=== PATIENT | female | born 1995 | race American Indian/Alaskan Native ===

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

== ENCOUNTER 2017-01-05 19:28 | Emergency (ER) | payer MEDICAID ==
[2017-01-05 19:37] VITALS: BP 136/70
--- NOTE | 2017-01-05 20:22 | EDM.PDOC ---
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 She saw her doctor about this and is scheduled for an OB visit fairly soon. She's had some uterine cramping for a couple of days. There has not been any bleeding. She has a little bit of a clear discharge and says there is a little bit of odor to it. She denies any burning or itching. Somebody told her that there might be a problem and maybe she should get checked out in the ER. 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 hymenectomy. LMP 10/30/16 Musculoskeletal History: Reports: Fracture Other Musculoskeletal History: left arm. fx R ankle Psychiatric History: Reports: ADD, Anxiety, Depression, Suicide Attempt, Suicidal Ideation Other Psychiatric History: had a suicidal attempt with pills 3 yrs ago - Past Surgical History GI Surgical History: Reports: Appendectomy Social & Family History - Tobacco Use Smoking Status *Q: Current Every Day Smoker Years of Tobacco use: 4 Packs/Tins Daily: 0.2 Used Tobacco, but Quit: No Month Tobacco Last Used: october Second Hand Smoke Exposure: No - Caffeine Use Caffeine Use: Reports: Coffee - Alcohol Use Days Per Week of Alcohol Use: 0 - Recreational Drug Use Recreational Drug Use: No Drug Use in Last 12 Months: Yes Recreational Drug Type: Reports: Marijuana/Hashish Recreational Drug Use Frequency: Not Used In Over 2 Months Recreational Drug Last Use: last month ED ROS GENERAL - Review of Systems Review Of Systems: ROS reveals no pertinent complaints other than HPI. ED EXAM, GI/ABD - Physical Exam Exam: See Below Exam Limited By: No Limitations General Appearance: Alert, WD/WN, No Apparent Distress Eyes: Bilateral: Normal Appearance Respiratory/Chest: No Respiratory Distress GI/Abdominal Exam: Other (Abdomen and exam not done) Course - Vital Signs Last Recorded V/S: Last Vital Signs Temp 36.8 C 01/05/17 19:35 Pulse 80 01/05/17 19:35 Resp 16 01/05/17 19:35 BP 136/70 01/05/17 19:35 Pulse Ox 99 01/05/17 19:35 Departure - Departure Time of Disposition: 20:20 Disposition: Home, Self-Care 01 Condition: Fair Clinical Impression: Pelvic pain affecting in first trimester, antepartum - Discharge Information Referrals: Dolores Bergman CNM [Primary Care Provider] - Additional Instructions: The kind of symptoms you are experiencing are very common in early . You should not be alarmed. If you feel like you're getting worse and you're starting to have bleeding then you should be reevaluated either in the ER or by your
== END 2017-01-05 20:15 | disposition home or self-care (01) ==
LOC: JP.ED 19:28
DX: O26.891 Other specified pregnancy related conditions, first trimester (principal); R10.2 Pelvic and perineal pain; O99.331 Smoking (tobacco) complicating pregnancy, first trimester; Z79.899 Other long term (current) drug therapy; Z3A.08 8 weeks gestation of pregnancy
CPT/HCPCS: 99284

== ENCOUNTER 2017-01-08 11:35 | Emergency (ER) | payer MEDICAID ==
[2017-01-08] MEDS ORDERED: Sodium Chloride 0.9% 10 ML Syringe FLUSH PRN (12:17)
[2017-01-08] MEDS ORDERED: Ondansetron 4 MG/2 ML SDV IVPUSH ONE (12:19)
[2017-01-08 12:25] VITALS: BP 128/68
[2017-01-08] MEDS: Lactated Ringers 1,000 ML IV SCH ×2 (12:51→13:50)
--- NOTE | 2017-01-08 12:51 | EDM.PDOC ---
ED HPI GENERAL MEDICAL PROBLEM - General Chief Complaint: Gastrointestinal Problem Stated Complaint: 9WK /VOMITING BLOOD Time Seen by Provider: 01/08/17 12:25 Source of Information: Reports: Patient, Family History Limitations: Reports: No Limitations - History of Present Illness INITIAL COMMENTS - FREE TEXT/NARRATIVE: Kourtney presents today with complaints of nausea and vomiting since 0630 today. She reports she has not been able to keep liquids or food down today and have been vomiting non-stop while at work. 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 Kourtney also reports the last several emesis have had bright blood in them. She is 9 weeks with estimated due date of July,. - Related Data Allergies Allergy/AdvReac Type Severity Reaction Status Date / Time No Known Allergies Allergy Verified 12/27/14 01:18 Home Meds: Home Meds Escitalopram [Lexapro] 20 mg PO DAILY 08/06/14 [History] Multivitamin [Multi-Day Vitamins] 1 tab PO DAILY 01/05/17 [History] Past Medical History Gastrointestinal History: Reports: GERD Other Gastrointestinal History: reflux Genitourinary History: Reports: UTI, Recurrent [employer] History: Reports: : 1 Para: 0 Other OB/BYN History: ovarian cyst. hymenectomy. LMP 10/30/16 Musculoskeletal History: Reports: Fracture Other Musculoskeletal History: left arm. fx R ankle Psychiatric History: Reports: ADD, Anxiety, Depression, Suicide Attempt, Suicidal Ideation Other Psychiatric History: had a suicidal attempt with pills 3 yrs ago - Past Surgical History GI Surgical History: Reports: Appendectomy Social & Family History - Tobacco Use Smoking Status *Q: Never Smoker Years of Tobacco use: 4 Packs/Tins Daily: 0.2 Used Tobacco, but Quit: No Month Tobacco Last Used: october Second Hand Smoke Exposure: No - Caffeine Use Caffeine Use: Reports: Coffee - Alcohol Use Days Per Week of Alcohol Use: 0 - Recreational Drug Use Recreational Drug Use: No Drug Use in Last 12 Months: Yes Recreational Drug Type: Reports: Marijuana/Hashish Recreational Drug Use Frequency: Not Used In Over 2 Months Recreational Drug Last Use: last month ED ROS GENERAL - Review of Systems Review Of Systems: See Below Constitutional: Denies: Fever, Chills, Malaise, Weakness HEENT: Reports: No Symptoms Respiratory: Denies: Shortness of Breath, Wheezing, Cough, Sputum Cardiovascular: Denies: Chest Pain, Dyspnea on Exertion, Edema, Lightheadedness , Palpitations, PND, Syncope Endocrine: Reports: No Symptoms GI/Abdominal: Reports: Nausea, Vomiting, Other (blood tinged vomit). Denies: Constipation, Diarrhea : Denies: Discharge, Dysuria, Flank Pain, Frequency, Hematuria, Pain, Urgency Musculoskeletal: Reports: No Symptoms Skin: Reports: No Symptoms Neurological: Reports: No Symptoms Psychiatric: Reports: No Symptoms Hematologic/Lymphatic: Reports: No Symptoms Immunologic: Reports: No Symptoms ED EXAM, GI/ABD - Physical Exam Exam: See Below Text/Narrative:: Kourtney is an alert, oriented and pleasant 21 year old female presenting to the clinic with nausea and vomiting during the first trimester of her . She reports she has been vomiting most days, today she has not been able to keep any foods or fluid down. She also states the last few emesis have had bright blood in them. She also complains of pelvic cramping at times. She denies vaginal bleeding or change in vaginal discharge. He care provider is Dolores at . She denies fever, chills, change in bowel and bladder function. General Appearance: Alert, WD/WN, Mild Distress Eyes: Bilateral: Normal Appearance, EOMI Ears: Normal External Exam, Normal Canal, Hearing Grossly Normal, Normal TMs Nose: Normal Inspection, Normal Mucosa, No Blood Throat/Mouth: Normal Inspection, Normal Lips, Normal Teeth, Normal Gums, Normal Oropharynx, Normal Voice, No Airway Compromise Head: Atraumatic, Normocephalic Neck: Normal Inspection, Supple, Non-Tender, Full Range of Motion. No: Lymphadenopathy (R), Lymphadenopathy (L) Respiratory/Chest: No Respiratory Distress, Lungs Clear, Normal Breath Sounds, No Accessory Muscle Use, Chest Non-Tender Cardiovascular: Normal Peripheral Pulses, Regular Rate, Rhythm, No Edema, No Murmur GI/Abdominal Exam: Normal Bowel Sounds, Soft, Non-Tender, No Mass Back Exam: Normal Inspection, Full Range of Motion. No: CVA Tenderness (R), CVA Tenderness (L) Extremities: Normal Inspection, Normal Range of Motion, Non-Tender, No Pedal Edema, Normal Capillary Refill Neurological: Alert, Oriented, CN II-XII Intact, Normal Cognition, Normal Gait, No Motor/Sensory Deficits Psychiatric: Normal Affect, Normal Mood Skin Exam: Warm, Dry, Intact, Other (Pale) Lymphatic: No Adenopathy Course - Vital Signs Last Recorded V/S: Last Vital Signs Temp 36.7 C 01/08/17 12:24 Pulse 89 01/08/17 12:24 Resp 14 01/08/17 12:24 BP 128/68 01/08/17 12:24 Pulse Ox 98 01/08/17 12:24 - Orders/Labs/Meds Orders: Active Orders 24 hr Category Date Time Status Saline Lock Insert [OM.PC] Routine Oth 01/08/17 12:17 Ordered Labs: Laboratory Tests 01/08/17 01/08/17 01/08/17 Range/Units 12:40 12:47 12:47 WBC 11.4 H (4.5-11.0) K/uL RBC 4.78 (3.30-5.50) M/uL Hgb 14.3 (12.0-15.0) g/dL Hct 41.4 (36.0-48.0) % MCV 87 (80-98) fL MCH 30 (27-31) pg MCHC 35 (32-36) % Plt Count 248 (150-400) K/uL Neut % (Auto) 85 H (36-66) % Lymph % (Auto) 11 L (24-44) % [place] % (Auto) 4 (2-6) % Eos % (Auto) 0 L (2-4) % Baso % (Auto) 0 (0-1) % Sodium 136 L (140-148) mmol/L Potassium 4.1 (3.6-5.2) mmol/L Chloride 102 (100-108) mmol/L Carbon Dioxide 22 (21-32) mmol/L Anion Gap 16.1 H (5.0-14.0) mmol/L BUN 14 (7-18) mg/dL Creatinine 0.6 (0.6-1.0) mg/dL Est Cr Clr Drug Dosing 113.80 mL/min Estimated GFR (MDRD) > 60 (>60) Glucose 86 (74-106) mg/dL Calcium 9.0 (8.5-10.1) mg/dL Total Bilirubin 0.3 D (0.2-1.0) mg/dL AST 20 (15-37) U/L ALT 29 (12-78) U/L Alkaline Phosphatase 48 (46-116) U/L Total Protein 7.7 (6.4-8.2) g/dL Albumin 4.2 (3.4-5.0) g/dL Globulin 3.5 (2.3-3.5) g/dL Albumin/Globulin Ratio 1.2 (1.2-2.2) Urine Color Yellow Urine Appearance Slightly cloudy Urine pH 6.0 (4.5-8.0) Ur Specific [place] 1.025 (1.008-1.030) Urine Protein Trace (NEGATIVE) mg/dL Urine Glucose (UA) Normal (NEGATIVE) mg/dL Urine Ketones 150 H (NEGATIVE) mg/dL Urine Occult Blood Moderate (NEGATIVE) Urine Nitrite Negative (NEGATIVE) Urine Bilirubin Negative (NEGATIVE) Urine Urobilinogen 1 (NORMAL) mg/dL Ur Leukocyte Esterase Negative (NEGATIVE) Urine RBC 5-10 H (0-5) Urine WBC 0-5 (0-5) Ur Epithelial Cells Not seen Amorphous Sediment Not seen Urine Bacteria Rare Urine Mucus Rare Meds: Medications Discontinued Medications Generic Name Dose Route Start Last Admin Trade Name Freq PRN Reason Stop Dose Admin Lactated Ringer's 1,000 mls @ 1,000 mls/hr 01/08/17 12:30 01/08/17 13:50 Ringers, Lactated IV 1,000 mls/hr ASDIRECTED VAMSI Administration Lactated Ringer's 1,000 mls @ 1,000 mls/hr 01/08/17 14:00 Ringers, Lactated IV ASDIRECTED VAMSI Ondansetron HCl 4 mg 01/08/17 12:19 01/08/17 12:50 Zofran IVPUSH 01/08/17 12:20 4 mg ONETIME ONE Administration Sodium Chloride 10 ml 01/08/17 12:17 01/08/17 12:51 Saline Flush FLUSH 10 ml ASDIRECTED PRN Administration Keep Vein Open - Re-Assessments/Exams Free Text/Narrative Re-Assessment/Exam: 01/08/17 12:20 We will complete lab work and IV fluids as well as medicate for nausea. 01/08/17 14:11 Patient reports nausea is much improved. She will be discharged after completion of 2nd liter LR. Patient and her Grandmother in agreement with plan. Departure - Departure Time of Disposition: 14:12 Disposition: Home, Self-Care 01 Condition: Fair Clinical Impression: Dehydration, Vomiting of , Ketonuria - Discharge Information Instructions: First Trimester of , [id number], Dehydration, Adult, [id number] Referrals: Dolores Bergman CNM [Primary Care Provider] - Forms: ED Department Discharge Additional Instructions: You have suffered from vomiting during , dehydration and ketonuria secondary to dehydration. You were given two liters of Lactated Ringers and ondansetron 4mg IV while in the emergency room and status improved. You will be discharged with ondansetron 4mg tablets, take by mouth three times a day for nausea and vomiting. Keep yourself hydrated. Use gatorade/sprite/7-up with small frequent meals. Try to become aware of, and avoid, environmental triggers and foods which might provoke their nausea and vomiting. If vomiting persists but without dehydration, we suggest adding diphenhydramine (benadryl) 25 to 50 mg orally every four to six hours. Follow up on Tuesday for your OB appointment with Dolores as scheduled. Return for worsening, issues or concerns. - My Orders Last 24 Hours: My Active Orders 01/08/17 12:17 Saline Lock Insert [OM.PC] Routine - Assessment/Plan Last 24 Hours: My Active Orders 01/08/17 12:17 Saline Lock Insert [OM.PC] Routine Assessment:: Patient has suffered from vomiting during , dehydration and ketonuria secondary to dehydration. She was given two liters of Lactated Ringers and ondansetron 4mg IV while in the emergency room and status improved. She will be discharged with ondansetron 4mg tablets, take by mouth three times a day for nausea and vomiting. Keep hydrated. Use gatorade/sprite/7-up with small frequent meals. Try to become aware of, and avoid, environmental triggers and foods which might provoke their nausea and vomiting. If vomiting persists but without dehydration, we suggest adding diphenhydramine (benadryl) 25 to 50 mg orally every four to six hours. Follow up on Tuesday for your OB appointment with Dolores as scheduled. Return for worsening, issues or concerns. Plan: ou have suffered from vomiting during , dehydration and ketonuria secondary to dehydration. You were given two liters of Lactated Ringers and ondansetron 4mg IV while in the emergency room and status improved. You will be discharged with ondansetron 4mg tablets, take by mouth three times a day for nausea and vomiting. Keep yourself hydrated. Use gatorade/sprite/7-up with small frequent meals. Try to become aware of, and avoid, environmental triggers and foods which might provoke their nausea and vomiting. If vomiting persists but without dehydration, we suggest adding diphenhydramine (benadryl) 25 to 50 mg orally every four to six hours. Follow up on Tuesday for your OB appointment with Dolores as scheduled. Return for worsening, issues or concerns.
[2017-01-08] MEDS ORDERED: Lactated Ringers 1,000 ML IV SCH (14:00)
== END 2017-01-08 15:04 | disposition home or self-care (01) ==
LOC: JP.ED 11:35
DX: O21.9 Vomiting of pregnancy, unspecified (principal); O99.281 Endocrine, nutritional and metabolic diseases complicating pregnancy, first trimester; E86.0 Dehydration; O99.89 Other specified diseases and conditions complicating pregnancy, childbirth and the puerperium; R82.4 Acetonuria; O99.341 Other mental disorders complicating pregnancy, first trimester; F32.9 Major depressive disorder, single episode, unspecified; Z90.49 Acquired absence of other specified parts of digestive tract; Z79.899 Other long term (current) drug therapy; Z3A.09 9 weeks gestation of pregnancy
CPT/HCPCS: 36415; 80053; 81001; 85025; 96360; 96361; 99284; J2405; J7050; J7120

== ENCOUNTER 2017-08-23 12:01 | Inpatient (IN) | payer MEDICAID ==
[2017-08-23] MEDS ORDERED: Sodium Chloride 0.9% 10 ML Syringe FLUSH PRN ×2 (12:49→13:07)
[2017-08-23] MEDS ORDERED: Ondansetron 4 MG Tab.DIS PO PRN (13:07)
[2017-08-23] MEDS ORDERED: Acetaminophen 325 MG Tab PO PRN (13:07)
--- NOTE | 2017-08-23 13:18 | PCM.LDHP ---
L&D History of Present Illness - General Date of Service: 08/23/17 Admit Problem/Dx: Patient Status Order with Admit Dx/Problem 08/23/17 12:45 Admission Status [Patient Status] [ADT] Routine 08/23/17 13:07 Patient Status [ADT] Routine Admission Diagnosis/Problem Admission Diagnosis/Problem Source of Information: Patient History Limitations: Reports: No Limitations - History of Present Illness Introduction:: This 22 year old G1 who is 39 3/7 weeks gestation presented with SROM at home without labor. RAIN 08/27/17 Contractions are just starting and about every 8 minutes. Amnio test was pos. Patient starts the fluid was clear. Has had adequate care Labs: GBS neg ABO A pos HIV neg Rubella immune. Timing/Duration: Reports: minutes: (8) Location, : Reports: Abdomen Quality: Reports: Pressure Severity: Mild - Related Data Allergies/Adverse Reactions: Allergies Allergy/AdvReac Type Severity Reaction Status Date / Time No Known Allergies Allergy Verified 12/27/14 01:18 Home Medications: Home Meds Ondansetron HCl [Zofran] 4 mg PO Q6H PRN 06/20/17 [History] Vit W-Ca,Fe,FA(<1 mg) [ Vitamins] 1 tab PO BEDTIME 06/20/17 [ History] hydrOXYzine Pamoate [Vistaril] 50 mg PO TID PRN #21 cap 08/18/17 [Rx] Past Medical History Gastrointestinal History: Reports: GERD Other Gastrointestinal History: reflux Genitourinary History: Reports: UTI, 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 hymenectomy. LMP 10/30/16 Musculoskeletal History: Reports: Fracture Other Musculoskeletal History: left arm. fx R ankle Psychiatric History: Reports: ADD, Anxiety, Depression, Suicide Attempt, Suicidal Ideation Other Psychiatric History: had a suicidal attempt with pills 3 yrs ago - Infectious Disease History Infectious Disease History: Reports: Chicken Pox - Past Surgical History GI Surgical History: Reports: Appendectomy Female Surgical History: Reports: Other (See Below) Other Female Surgeries/Procedures: hymenectomy Social & Family History - Family History Family Medical History: Noncontributory - Tobacco Use Smoking Status *Q: Never Smoker Second Hand Smoke Exposure: No - Caffeine Use Caffeine Use: Reports: Coffee - Recreational Drug Use Recreational Drug Use: Yes Drug Use in Last 12 Months: Yes Recreational Drug Type: Reports: Marijuana/Hashish H&P Review of Systems - Review of Systems: Review Of Systems: See Below General: Reports: No Symptoms HEENT: Reports: No Symptoms Pulmonary: Reports: No Symptoms Cardiovascular: Reports: No Symptoms Gastrointestinal: Reports: No Symptoms Genitourinary: Reports: No Symptoms Musculoskeletal: Reports: No Symptoms Skin: Reports: No Symptoms Psychiatric: Reports: No Symptoms Neurological: Reports: No Symptoms Hematologic/Lymphatic: Reports: No Symptoms Immunologic: Reports: No Symptoms L&D Exam - Exam Exam: See Below - Vital Signs Weight: 228 lb - OB Specific Contraction Intensity: Mild Movement: Active Heart Tones: Present Heart Tones per Min: 140 Heart Rate (FHR) Variability: Moderate (6-25 bmp) Presentation: Vertex - Reeder Score Reeder Score Cervix Position: Posterior Reeder Score Consistency: Soft Reeder Score Effacement: 51-70% Reeder Score Dilation: 1-2 cm Reeder Score Infant's Station: -2 Reeder Score Total: 6 - Exam General: Alert, Oriented HEENT: Conjunctiva Clear, Mucosa Moist & [place], Posterior Pharynx Clear Neck: Supple Lungs: Clear to Auscultation, Normal Respiratory Effort Cardiovascular: Regular Rate, Regular Rhythm GI/Abdominal Exam: Non-Tender Genitourinary: Cervical dilitation, Cervical fluid, Enlarged uterus Back Exam: Normal Inspection Extremities: Normal Inspection, No Pedal Edema Skin: Warm Neurological: Cranial Nerves Intact, Reflexes Equal Bilateral Psychiatric: Alert, Normal Affect, Normal Mood - Patient Data Lab Results Last 24 hrs: Laboratory Results - last 24 hr 08/23/17 08/23/17 08/23/17 Range/Units 12:28 12:28 12:30 WBC (4.5-11.0) K/uL RBC (3.30-5.50) M/uL Hgb (12.0-15.0) g/dL Hct (36.0-48.0) % MCV (80-98) fL MCH (27-31) pg MCHC (32-36) % Plt Count (150-400) K/uL Neut % (Auto) (36-66) % Lymph % (Auto) (24-44) % [place] % (Auto) (2-6) % Eos % (Auto) (2-4) % Baso % (Auto) (0-1) % Urine Color Yellow Urine Appearance Cloudy Urine pH 7.0 (4.5-8.0) Ur Specific [place] 1.010 (1.008-1.030) Urine Protein Trace (NEGATIVE) mg/dL Urine Glucose (UA) Normal (NEGATIVE) mg/dL Urine Ketones Negative (NEGATIVE) mg/dL Urine Occult Blood Large (NEGATIVE) Urine Nitrite Negative (NEGATIVE) Urine Bilirubin Negative (NEGATIVE) Urine Urobilinogen Normal (NORMAL) mg/dL Ur Leukocyte Esterase Negative (NEGATIVE) Urine RBC 5-10 H (0-5) Urine WBC 0-5 (0-5) Ur Epithelial Cells Moderate Amorphous Sediment Moderate Urine Bacteria Not seen Urine Mucus Many Membrane Rupture Positive H (NEGATIVE) Urine Opiates Screen Negative (NEGATIVE) Ur Oxycodone Screen Negative (NEGATIVE) Urine Methadone Screen Negative (NEGATIVE) Ur Propoxyphene Screen Negative (NEGATIVE) Ur Barbiturates Screen Negative (NEGATIVE) Ur Tricyclics Screen Negative (NEGATIVE) Ur Phencyclidine Scrn Negative (NEGATIVE) Ur Amphetamine Screen Negative (NEGATIVE) U Methamphetamines Scrn Negative (NEGATIVE) Urine MDMA Screen Negative (NEGATIVE) U Benzodiazepines Scrn Negative (NEGATIVE) U Cocaine Metab Screen Negative (NEGATIVE) U Marijuana (THC) Screen Negative (NEGATIVE) 08/23/17 Range/Units 12:49 WBC 11.2 H (4.5-11.0) K/uL RBC 4.40 (3.30-5.50) M/uL Hgb 13.2 (12.0-15.0) g/dL Hct 38.2 (36.0-48.0) % MCV 87 (80-98) fL MCH 30 (27-31) pg MCHC 35 (32-36) % Plt Count 218 (150-400) K/uL Neut % (Auto) 76 H (36-66) % Lymph % (Auto) 17 L (24-44) % [place] % (Auto) 7 H (2-6) % Eos % (Auto) 0 L (2-4) % Baso % (Auto) 0 (0-1) % Urine Color Urine Appearance Urine pH (4.5-8.0) Ur Specific [place] (1.008-1.030) Urine Protein (NEGATIVE) mg/dL Urine Glucose (UA) (NEGATIVE) mg/dL Urine Ketones (NEGATIVE) mg/dL Urine Occult Blood (NEGATIVE) Urine Nitrite (NEGATIVE) Urine Bilirubin (NEGATIVE) Urine Urobilinogen (NORMAL) mg/dL Ur Leukocyte Esterase (NEGATIVE) Urine RBC (0-5) Urine WBC (0-5) Ur Epithelial Cells Amorphous Sediment Urine Bacteria Urine Mucus Membrane Rupture (NEGATIVE) Urine Opiates Screen (NEGATIVE) Ur Oxycodone Screen (NEGATIVE) Urine Methadone Screen (NEGATIVE) Ur Propoxyphene Screen (NEGATIVE) Ur Barbiturates Screen (NEGATIVE) Ur Tricyclics Screen (NEGATIVE) Ur Phencyclidine Scrn (NEGATIVE) Ur Amphetamine Screen (NEGATIVE) U Methamphetamines Scrn (NEGATIVE) Urine MDMA Screen (NEGATIVE) U Benzodiazepines Scrn (NEGATIVE) U Cocaine Metab Screen (NEGATIVE) U Marijuana (THC) Screen (NEGATIVE) Result Diagrams: 08/23/17 12:49 - Problem List (1) Spontaneous rupture of amniotic membranes SNOMED Code(s): 011667641 ICD Code: [id number] - Status: Acute Current Visit: Yes (2) SNOMED Code(s): 02025775 ICD Code: Z34.90 - ENCNTR FOR SUPRVSN OF NORMAL , UNSP, UNSP TRIMESTER Status: Acute Current Visit: Yes Qualifiers: Weeks of gestation: 39 weeks Qualified Code(s): Z3A.39 - 39 weeks gestation of Problem List Initiated/Reviewed/Updated: Yes Orders Last 24hrs: Active Orders 24 hr Category Date Time Status Patient Status [ADT] Routine ADT 08/23/17 13:07 Ordered Antiembolic Devices [RC] .Routine Care 08/23/17 13:11 Ordered Bedrest Bathroom Privileges [RC] ASDIRECTED Care 08/23/17 13:07 Ordered Communication Order [RC] ASDIRECTED Care 08/23/17 13:07 Ordered Heart Tones [RC] PER UNIT ROUTINE Care 08/23/17 13:07 Ordered May Shower [RC] ASDIRECTED Care 08/23/17 13:07 Ordered Notify Provider Vital Signs [RC] PRN Care 08/23/17 13:07 Ordered Notify Provider [RC] PRN Care 08/23/17 13:07 Ordered OB Check [OM.PC] Click to Edit Care 08/23/17 12:13 Ordered Up ad Karla [RC] ASDIRECTED Care 08/23/17 13:07 Ordered VTE/DVT Education [RC] Click to Edit Care 08/23/17 13:11 Ordered Vital Signs [RC] PER UNIT ROUTINE Care 08/23/17 13:07 Ordered Clear Liquid Diet [DIET] Diet 08/23/17 Dinner Active Regular Diet [DIET] Diet 08/23/17 Dinner Active AMNISURE RUPTURE MEMBRAN [BF] Routine Lab 08/23/17 12:30 Ordered DRUG SCREEN, URINE [URCHEM] Routine Lab 08/23/17 12:28 Ordered UA W/MICROSCOPIC [URIN] Routine Lab 08/23/17 12:28 Ordered Acetaminophen [Tylenol] Med 08/23/17 13:07 Ordered 650 mg PO Q4H PRN Ondansetron [Zofran ODT] Med 08/23/17 13:07 Ordered 4 mg PO Q4H PRN Oxytocin/Normal Saline [Pitocin in NS 20 Units/1,000 ML Med 08/23/17 13:15 Ordered ] 1,000 ml IV TITRATE Sodium Chloride 0.9% [Saline Flush] Med 08/23/17 12:49 Active 10 ml FLUSH ASDIRECTED PRN Sodium Chloride 0.9% [Saline Flush] Med 08/23/17 13:07 Ordered 10 ml FLUSH ASDIRECTED PRN fentaNYL [Sublimaze] Med 08/23/17 13:07 Ordered 100 mcg IVPUSH Q1H PRN DVT/VTE Prophylaxis Reflex [OM.PC] Routine Oth 08/23/17 13:07 Ordered Saline Lock Insert [OM.PC] Routine Oth 08/23/17 12:49 Ordered Saline Lock Insert [OM.PC] Routine Oth 08/23/17 13:07 Ordered Resuscitation Status Routine Resus Stat 08/23/17 13:07 Ordered Medication Orders Acetaminophen (Tylenol) 650 mg PO Q4H PRN PRN Reason: Pain (Mild 1-3) and fever Fentanyl (Sublimaze) 100 mcg IVPUSH Q1H PRN PRN Reason: Pain (moderate 4-6) Ondansetron HCl (Zofran Odt) 4 mg PO Q4H PRN PRN Reason: Nausea/Vomiting Sodium Chloride (Saline Flush) 10 ml FLUSH ASDIRECTED PRN PRN Reason: Keep Vein Open Sodium Chloride (Saline Flush) 10 ml FLUSH ASDIRECTED PRN PRN Reason: Keep Vein Open Assessment/Plan Comment:: 08/23/17 22 year old G1 39 06/01 with SROM without labor. now elias. Will monitor for labor. If good contraction pattern isn't established by 1700 will start pitocin. 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
--- NOTE | 2017-08-23 17:16 | PCM.PNLD ---
Labor Progress Note - VS & Meds Vital Signs: Last Vital Signs Temp 97.3 F 08/23/17 16:00 Pulse 79 08/23/17 16:00 Resp 20 08/23/17 16:00 BP 143/81 H 08/23/17 16:00 Pulse Ox 96 08/23/17 16:00 Active Medications: Current Medications Acetaminophen (Tylenol) 650 mg PO Q4H PRN PRN Reason: Pain (Mild 1-3) and fever Fentanyl (Sublimaze) 100 mcg IVPUSH Q1H PRN PRN Reason: Pain (moderate 4-6) Oxytocin/Sodium Chloride (Pitocin In Ns 20 Units/1,000 Ml) 20 units in 1,000 mls @ 6 mls/hr IV TITRATE VAMSI; Protocol Ondansetron HCl (Zofran Odt) 4 mg PO Q4H PRN PRN Reason: Nausea/Vomiting Sodium Chloride (Saline Flush) 10 ml FLUSH ASDIRECTED PRN PRN Reason: Keep Vein Open Sodium Chloride (Saline Flush) 10 ml FLUSH ASDIRECTED PRN PRN Reason: Keep Vein Open - Uterine Contractions Uterine Monitoring Mode: External [place] Contraction Frequency (min): 8 Contraction Duration (sec): 90-100 Contraction Intensity: Mild Uterine Resting Tone: Soft - Monitoring Monitor Mode: Doppler/Auscultation Heart Rate (FHR) Baseline: 140 Heart Rate (FHR) Variability: Moderate (6-25 bmp) Accelerations: Present, 15x15 Decelerations: None Strip Review: Category I - Vaginal Exam Dilation (cm): 1 Station: -2 Cervical Position: Posterior Sterile Vaginal Exam Performed By: Gloria Bautista - Labor Progress (Free Text) Labor Progress: really hasn't had much for contractions, super mild. Has been up and about. PROM: Will start pitocin augmentation assess for active labor. epidural per patient request Limit vaginal check Plan for vaginal delivery
[2017-08-23] MEDS ORDERED: Lactated Ringers 1,000 ML IV SCH (17:30)
[2017-08-23] MEDS: fentaNYL 100 MCG/2 ML SDV IVPUSH PRN ×2 (20:51→22:15)
[2017-08-23] MEDS ORDERED: ePHEDrine 50 MG/ML SDV ONE (23:01)
[2017-08-23] MEDS ORDERED: Ropivacaine HCl/PF 200 ML ONE (23:15)
--- NOTE | 2017-08-24 00:13 | ANES ---
DATE OF SERVICE: 08/23/2017 INDICATION: Ms. Mejias is a 22-year-old female patient whom Bette Cramer asked me to come and evaluate for an epidural for labor. She is approximately 5 cm and in active labor on a Pitocin drip and she is a primip. Risks and benefits of the procedure were explained to the patient, she wished to proceed with labor epidural. DESCRIPTION OF PROCEDURE: She was placed in a sitting position. Her back was prepped x3 with Betadine and 1% lidocaine skin local was used. The epidural was placed at L3-L4 using a 17-gauge Tuohy needle in loss of resistance technique. The epidural had very good feel throughout. The epidural space was easily identified. Negative CSF, negative blood, and negative paresthesias noted; therefore, a catheter was threaded to 15 cm at the skin. There was negative CSF, negative blood, and negative paresthesias with the catheter as well. A 1.5% lidocaine test dose of 3 mL was given and this test dose was negative. The catheter was then secured with Tegaderm and tape, and the patient was placed in a supine position. A 0.2% ropivacaine bolus of 10 mL was given. Her vital signs remained stable after the bolus and she got a very nice relief. A 0.2% ropivacaine drip was started at 12 mL/h. Her vital signs remained stable throughout the procedure and nurse was with me the entire procedure. There were no anesthesia complications noted. We will continue to monitor throughout her Labor and Delivery stay. Bill Rodriguez CRNA /[id number]
[2017-08-24] MEDS ORDERED: Oxytocin 10 Units/1 ML SDV ONE ×3 (00:45→01:05)
[2017-08-24] MEDS ORDERED: cefOXitin 1 GM Vial ONE (00:46)
[2017-08-24] MEDS ORDERED: fentaNYL 250 MCG/5 ML SDV ONE (01:01)
[2017-08-24] MEDS ORDERED: Ondansetron 4 MG/2 ML SDV ONE (01:05)
[2017-08-24] MEDS ORDERED: cefOXitin 2 GM Vial ONE (01:05)
[2017-08-24] MEDS ORDERED: Bupivacaine 0.5% 30 ML SDV ONE (01:05)
[2017-08-24] MEDS ORDERED: ePHEDrine 50 MG/ML SDV ONE (01:05)
[2017-08-24] MEDS ORDERED: Dexamethasone 4 MG/ML SDV ONE (01:05)
[2017-08-24] MEDS ORDERED: Lactated Ringers 1,000 ML ONE (01:16)
[2017-08-24] MEDS ORDERED: Sodium Chloride 0.9% 10 ML ONE (01:39)
[2017-08-24] MEDS ORDERED: Morphine PF 10 MG/10 ML SDV ONE ×2 (01:39→10:09)
--- NOTE | 2017-08-24 01:41 | PCM.PNLD ---
Labor Progress Note - VS & Meds Vital Signs: Last Vital Signs Temp 97.6 F 08/23/17 21:20 Pulse 62 08/23/17 21:23 Resp 16 08/23/17 21:20 BP 136/82 08/23/17 21:23 Pulse Ox 97 08/23/17 21:20 Active Medications: Current Medications Acetaminophen (Tylenol) 650 mg PO Q4H PRN PRN Reason: Pain (Mild 1-3) and fever Fentanyl (Sublimaze) 100 mcg IVPUSH Q1H PRN PRN Reason: Pain (moderate 4-6) Last Admin: 08/23/17 22:15 Dose: 100 mcg Oxytocin/Sodium Chloride (Pitocin In Ns 20 Units/1,000 Ml) 20 units in 1,000 mls @ 6 mls/hr IV TITRATE VAMSI; Protocol Last Titration: 08/23/17 18:57 Dose: 8 munits/min, 24 mls/hr Lactated Ringer's (Ringers, Lactated) 1,000 mls @ 25 mls/hr IV ASDIRECTED VAMSI Last Admin: 08/23/17 17:20 Dose: 25 mls/hr Ondansetron HCl (Zofran Odt) 4 mg PO Q4H PRN PRN Reason: Nausea/Vomiting Last Admin: 08/23/17 23:26 Dose: 4 mg Sodium Chloride (Saline Flush) 10 ml FLUSH ASDIRECTED PRN PRN Reason: Keep Vein Open Sodium Chloride (Saline Flush) 10 ml FLUSH ASDIRECTED PRN PRN Reason: Keep Vein Open Discontinued Medications Bupivacaine HCl (Marcaine 0.5%) Confirm Administered Dose 30 ml .ROUTE .STK-MED ONE Stop: 08/24/17 01:06 Cefoxitin Sodium (Mefoxin) Confirm Administered Dose 1 gm .ROUTE .STK-MED ONE Stop: 08/24/17 00:47 Cefoxitin Sodium (Mefoxin) Confirm Administered Dose 2 gm .ROUTE .STK-MED ONE Stop: 08/24/17 01:06 Dexamethasone (Dexamethasone) Confirm Administered Dose 4 mg .ROUTE .STK-MED ONE Stop: 08/24/17 01:06 Ephedrine Sulfate (Ephedrine Sulfate) Confirm Administered Dose 50 mg .ROUTE .STK-MED ONE Stop: 08/23/17 23:02 Ephedrine Sulfate (Ephedrine Sulfate) Confirm Administered Dose 50 mg .ROUTE .STK-MED ONE Stop: 08/24/17 01:06 Fentanyl (Sublimaze) Confirm Administered Dose 250 mcg .ROUTE .STK-MED ONE Stop: 08/24/17 01:02 Ropivacaine (Naropin 0.2%) Confirm Administered Dose 200 mls @ as directed .ROUTE .STK-MED ONE Stop: 08/23/17 23:16 Lactated Ringer's (Ringers, Lactated) Confirm Administered Dose 1,000 mls @ as directed .ROUTE .STK-MED ONE Stop: 08/24/17 01:17 Ondansetron HCl (Zofran) Confirm Administered Dose 4 mg .ROUTE .STK-MED ONE Stop: 08/24/17 01:06 Oxytocin (Pitocin) Confirm Administered Dose 20 unit .ROUTE .STK-MED ONE Stop: 08/24/17 00:46 Oxytocin (Pitocin) Confirm Administered Dose 10 unit .ROUTE .STK-MED ONE Stop: 08/24/17 01:06 Oxytocin (Pitocin) Confirm Administered Dose 10 unit .ROUTE .STCollege Tonight-MED ONE Stop: 08/24/17 01:06 - Uterine Contractions Uterine Monitoring Mode: None in Use Contraction Frequency (min): 2 Contraction Duration (sec): 30-70 Contraction Intensity: Moderate Uterine Resting Tone: Soft - Monitoring Monitor Mode: Doppler/Auscultation Heart Rate (FHR) Baseline: 140 Heart Rate (FHR) Variability: Marked (>25 bpm) Accelerations: Present, 15x15 Decelerations: Early, Prolonged (>2x10 min) Strip Review: Category III - Vaginal Exam Dilation (cm): 100 Effacement (Percent): 90 Station: -1 Cervical Position: Midposition Sterile Vaginal Exam Performed By: Mary Ann Cramer Vaginal Exam Comment: complete at 0000 - Labor Progress (Free Text) Labor Progress: decels to 80-90's with contractions and pushing. pitocin was off o2 on mom position change, low heart rate persisted tight pelvis and pushing was going to take at least 1-2 hours. baby didn't tolerate pushing discussed options with mother and her mom and we decided in the best interests of mom and baby to proceed to c section. A stat c section was called
[2017-08-24] MEDS ORDERED: Ondansetron 4 MG/2 ML SDV IVPUSH PRN (02:51)
[2017-08-24] MEDS ORDERED: hydrOXYzine HCl 100 MG/2 ML SDV IM PRN (02:52)
[2017-08-24] MEDS ORDERED: Naloxone 0.4 MG/ML SDV IVPUSH PRN (02:59)
[2017-08-24] MEDS ORDERED: Morphine PF 10 MG/10 ML SDV EPIDUR PRN (02:59)
[2017-08-24] MEDS ORDERED: Meperidine PF 75 MG/ML Syringe IM PRN (03:11)
[2017-08-24] MEDS: diphenhydrAMINE 50 MG/ML SDV IVPUSH PRN ×2 (05:37→15:52)
[2017-08-24] MEDS: cefOXitin 2 GM in Sodium Chloride 0.9% 50 ML IV SCH ×4 (06:05→23:30)
--- NOTE | 2017-08-24 07:57 | PN ---
DATE OF SERVICE: 08/24/2017 SUBJECTIVE: Kourtney had a around 0145 hours. She reports her pain is controlled. She is alert and orientated. Does report generalized pruritus. REVIEW OF SYSTEMS: Remainder of review of systems negative for any pertinent positives and negatives. OBJECTIVE: GENERAL: Kourtney is a 22-year-old female. VITAL SIGNS: TPR is 97.7, 66, 16. Blood pressure 109/55. Oral intake 400. Urine output via Tomas catheter 450 mL, and HARVINDER drain put out 15 mL of a light red drainage. HEENT: Negative. NECK: Supple. HEART: Regular rate and rhythm. LUNGS: Clear. ABDOMEN: Dressings dry and intact. HARVINDER drain intact as above. EXTREMITIES: Negative. ASSESSMENT: section for term with deceleration. Date of surgery 08/24/2017. PLAN: 1. Full liquid diet. 2. Advance as tolerated. 3. Decrease IV to 100 mL per hour when oral intake and urine output adequate. 4. Anesthesia will be contacted regarding generalized pruritus. 5. Good pulmonary function. 6. We will evaluate p.r.n. or in the a.m. Plan discontinuing Tomas catheter in the a.m. Anna Killian PA-C /[id number]
[2017-08-24] MEDS: Dextrose 5%-Lactated Ringers 1,000 ML IV SCH ×2 (08:11→16:52)
[2017-08-24] MEDS: Acetaminophen/oxyCODONE 325-5 MG Tab PO PRN (18:24)
[2017-08-24] MEDS: Docusate Sodium 100 MG Cap PO PRN (21:53)
[2017-08-25] MEDS: Acetaminophen/oxyCODONE 325-5 MG Tab PO PRN ×5 (02:43→20:39)
[2017-08-25] MEDS: diphenhydrAMINE 50 MG/ML SDV IVPUSH PRN (02:53)
[2017-08-25] MEDS: cefOXitin 2 GM in Sodium Chloride 0.9% 50 ML IV SCH ×3 (05:48→17:22)
--- NOTE | 2017-08-25 07:08 | PCM.SURGPN ---
<Aure Stevens - Last Filed: 08/25/17 07:25> - General Info Date of Service: 08/25/17 Date of Surgery/Procedure: 08/24/17 POD#: 1 Post-Op Diagnosis: for term and decelerations Functional Status: Reports: Pain Controlled, Tolerating Diet - Review of Systems General: Reports: Other (Epidural was removed due to increase puritis. Tomas removed with epidural. Oral pain medication was started yesterday afternoon.) HEENT: Reports: No Symptoms Pulmonary: Reports: No Symptoms Cardiovascular: Reports: No Symptoms Gastrointestinal: Reports: No Symptoms Genitourinary: Reports: No Symptoms Musculoskeletal: Reports: No Symptoms Skin: Reports: Pruritis Neurological: Reports: No Symptoms Psychiatric: Reports: No Symptoms - Patient Data Vitals - Most Recent: Last Vital Signs Temp 96.8 F 08/25/17 04:00 Pulse 78 08/25/17 04:00 Resp 15 08/25/17 04:00 BP 117/66 08/25/17 04:00 Pulse Ox 97 08/25/17 04:00 Weight - Most Recent: 227 lb 15.998 oz I&O - Last 24 Hours: Intake & Output 08/24/17 08/25/17 08/25/17 22:59 06:59 14:59 Intake Total 50 100 Output Total 1145 915 Balance -1095 -815 Med Orders - Current: Current Medications Bisacodyl (Dulcolax) 20 mg PO ONETIME ONE Stop: 08/25/17 07:00 Diphenhydramine HCl (Benadryl) 25 - 50 mg IVPUSH Q6H PRN PRN Reason: ITCHING Last Admin: 08/25/17 02:53 Dose: 50 mg Docusate Sodium (Colace) 100 mg PO BID PRN PRN Reason: Constipation Last Admin: 08/24/17 21:53 Dose: 100 mg Hydroxyzine HCl (Vistaril) 100 mg IM Q4H PRN PRN Reason: PAIN Last Admin: 08/25/17 04:26 Dose: 100 mg Oxytocin/Sodium Chloride (Pitocin In Ns 20 Units/1,000 Ml) 20 units in 1,000 mls @ 6 mls/hr IV TITRATE VAMSI; Protocol Last Titration: 08/23/17 18:57 Dose: 8 munits/min, 24 mls/hr Naloxone HCl 0.4 mg/ Sodium (Chloride) 1,001 mls @ 0 mls/hr IV ASDIRECTED PRN; Protocol PRN Reason: ITCHING Last Admin: 08/24/17 16:52 Dose: 0.4 mls/hr, 0.4 mls/hr Cefoxitin Sodium 2 gm/ Sodium (Chloride) 50 mls @ 100 mls/hr IV Q6H VAMSI Last Admin: 08/25/17 05:48 Dose: 100 mls/hr Magnesium Hydroxide (Milk Of Magnesia) 30 ml PO ONETIME ONE Stop: 08/25/17 07:00 Meperidine HCl (Demerol) 75 mg IM ONETIME PRN PRN Reason: BREAKTHROUGH PAIN Naloxone HCl (Narcan) 0.1 mg IVPUSH Q5M PRN PRN Reason: IF RESP RATE LESS THAN 6 Ondansetron HCl (Zofran) 4 mg IVPUSH Q4H PRN PRN Reason: NAUSEA Oxycodone/Acetaminophen (Percocet 325-5 Mg) 1 - 2 tab PO Q4H PRN PRN Reason: Pain Last Admin: 08/25/17 02:43 Dose: 2 tab Sodium Chloride (Saline Flush) 10 ml FLUSH ASDIRECTED PRN PRN Reason: Keep Vein Open Discontinued Medications Bupivacaine HCl (Marcaine 0.5%) Confirm Administered Dose 30 ml .ROUTE .STK-MED ONE Stop: 08/24/17 01:06 Cefoxitin Sodium (Mefoxin) Confirm Administered Dose 1 gm .ROUTE .STK-MED ONE Stop: 08/24/17 00:47 Last Admin: 08/24/17 01:25 Dose: 1 gm Cefoxitin Sodium (Mefoxin) Confirm Administered Dose 2 gm .ROUTE .STK-MED ONE Stop: 08/24/17 01:06 Dexamethasone (Dexamethasone) Confirm Administered Dose 4 mg .ROUTE .STK-MED ONE Stop: 08/24/17 01:06 Ephedrine Sulfate (Ephedrine Sulfate) Confirm Administered Dose 50 mg .ROUTE .STK-MED ONE Stop: 08/23/17 23:02 Last Admin: 08/24/17 05:44 Dose: Not Given Ephedrine Sulfate (Ephedrine Sulfate) Confirm Administered Dose 50 mg .ROUTE .STK-MED ONE Stop: 08/24/17 01:06 Fentanyl (Sublimaze) 100 mcg IVPUSH Q1H PRN PRN Reason: Pain (moderate 4-6) Last Admin: 08/23/17 22:15 Dose: 100 mcg Fentanyl (Sublimaze) Confirm Administered Dose 250 mcg .ROUTE .[facility] ONE Stop: 08/24/17 01:02 Lactated Ringer's (Ringers, Lactated) 1,000 mls @ 25 mls/hr IV ASDIRECTED [facility] Last Admin: 08/23/17 17:20 Dose: 25 mls/hr Ropivacaine (Naropin 0.2%) Confirm Administered Dose 200 mls @ as directed .ROUTE .[facility] ONE Stop: 08/23/17 23:16 Lactated Ringer's (Ringers, Lactated) Confirm Administered Dose 1,000 mls @ as directed .ROUTE .[facility] ONE Stop: 08/24/17 01:17 Sodium Chloride (Normal Saline) Confirm Administered Dose 10 mls @ as directed .ROUTE .[facility] ONE Stop: 08/24/17 01:40 Oxytocin 10 unit/ Dextrose/ (Lactated Ringer's) 1,001 mls @ 175 mls/hr IV ASDIRECTED [facility] Dextrose/Lactated Ringer's (Dextrose 5%-Lactated Ringers) 1,000 mls @ 175 mls/ hr IV ASDIRECTED [facility] Last Admin: 08/24/17 16:52 Dose: 100 mls/hr Morphine Sulfate (Duramorph Pf) Confirm Administered Dose 10 mg .ROUTE .[facility] ONE Stop: 08/24/17 01:40 Morphine Sulfate (Duramorph Pf) 0 mg EPIDUR Q12H PRN PRN Reason: PAIN Morphine Sulfate (Duramorph Pf) Confirm Administered Dose 10 mg .ROUTE .[facility] ONE Stop: 08/24/17 10:10 Ondansetron HCl (Zofran Odt) 4 mg PO Q4H PRN PRN Reason: Nausea/Vomiting Last Admin: 08/23/17 23:26 Dose: 4 mg Ondansetron HCl (Zofran) Confirm Administered Dose 4 mg .ROUTE .[facility] ONE Stop: 08/24/17 01:06 Oxytocin (Pitocin) Confirm Administered Dose 20 unit .ROUTE .[facility] ONE Stop: 08/24/17 00:46 Oxytocin (Pitocin) Confirm Administered Dose 10 unit .ROUTE .STK-MED ONE Stop: 08/24/17 01:06 Oxytocin (Pitocin) Confirm Administered Dose 10 unit .ROUTE .STK-MED ONE Stop: 08/24/17 01:06 - Exam Wound/Incisions: Healing Well, Dressing Dry and Intact, Drainage ( Seriosanguinous) General: Alert, Oriented, Cooperative, No Acute Distress HEENT: Pupils Equal, Mucous Membr. Moist/[place] Neck: Supple Lungs: Clear to Auscultation, Normal Respiratory Effort Cardiovascular: Regular Rate, Regular Rhythm Extremities: Normal Inspection, Normal Range of Motion Skin: Warm, Intact, Moist Neurological: No New Focal Deficit, Normal Speech, Normal Tone Psy/Mental Status: Alert, Normal Affect, Normal Mood - My Orders Last 24 Hours: Active Orders 24 hr Category Date Time Status Communication Order [RC] ASDIRECTED Care 08/24/17 07:01 Active Communication Order [RC] ASDIRECTED Care 08/25/17 07:00 Active Communication Order [RC] Per Unit Routine Care 08/24/17 07:02 Active Communication Order [RC] Per Unit Routine Care 08/24/17 07:03 Active Communication Order [RC] Per Unit Routine Care 08/25/17 07:00 Active Intake and Output [RC] QSHIFT Care 08/24/17 07:00 Active May Shower [RC] ASDIRECTED Care 08/25/17 06:59 Active Full Liquid Diet [DIET] Diet 08/24/17 Breakfast Ordered Acetaminophen/oxyCODONE [Percocet 325-5 MG] Med 08/24/17 17:30 Active 1 - 2 tab PO Q4H PRN Bisacodyl [Dulcolax] Med 08/25/17 06:59 Once 20 mg PO ONETIME ONE Docusate Sodium [Colace] Med 08/24/17 17:33 Active 100 mg PO BID PRN Magnesium Hydroxide [Milk of Magnesia] Med 08/25/17 06:59 Once 30 ml PO ONETIME ONE Medication Orders Bisacodyl (Dulcolax) 20 mg PO ONETIME ONE Stop: 08/25/17 07:00 Diphenhydramine HCl (Benadryl) 25 - 50 mg IVPUSH Q6H PRN PRN Reason: ITCHING Last Admin: 08/25/17 02:53 Dose: 50 mg Admin: 08/24/17 15:52 Dose: 50 mg Admin: 08/24/17 05:37 Dose: 25 mg Docusate Sodium (Colace) 100 mg PO BID PRN PRN Reason: Constipation Last Admin: 08/24/17 21:53 Dose: 100 mg Hydroxyzine HCl (Vistaril) 100 mg IM Q4H PRN PRN Reason: PAIN Last Admin: 08/25/17 04:26 Dose: 100 mg Oxytocin/Sodium Chloride (Pitocin In Ns 20 Units/1,000 Ml) 20 units in 1,000 mls @ 6 mls/hr IV TITRATE VAMSI; Protocol Last Titration: 08/23/17 18:57 Dose: 8 munits/min, 24 mls/hr Titration: 08/23/17 18:24 Dose: 6 munits/min, 18 mls/hr Titration: 08/23/17 17:55 Dose: 4 munits/min, 12 mls/hr Admin: 08/23/17 17:20 Dose: 2 munits/min, 6 mls/hr Naloxone HCl 0.4 mg/ Sodium (Chloride) 1,001 mls @ 0 mls/hr IV ASDIRECTED PRN; Protocol PRN Reason: ITCHING Last Admin: 08/24/17 16:52 Dose: 0.4 mls/hr, 0.4 mls/hr Titration: 08/24/17 16:52 Dose: 0.4 mls/hr, 0.4 mls/hr Admin: 08/24/17 08:11 Dose: 0.4 mls/hr, 0.4 mls/hr Cefoxitin Sodium 2 gm/ Sodium (Chloride) 50 mls @ 100 mls/hr IV Q6H VAMSI Last Admin: 08/25/17 05:48 Dose: 100 mls/hr Admin: 08/24/17 23:30 Dose: 100 mls/hr Admin: 08/24/17 17:20 Dose: 100 mls/hr Admin: 08/24/17 11:44 Dose: 100 mls/hr Admin: 08/24/17 06:05 Dose: 100 mls/hr Magnesium Hydroxide (Milk Of Magnesia) 30 ml PO ONETIME ONE Stop: 08/25/17 07:00 Meperidine HCl (Demerol) 75 mg IM ONETIME PRN PRN Reason: BREAKTHROUGH PAIN Naloxone HCl (Narcan) 0.1 mg IVPUSH Q5M PRN PRN Reason: IF RESP RATE LESS THAN 6 Ondansetron HCl (Zofran) 4 mg IVPUSH Q4H PRN PRN Reason: NAUSEA Oxycodone/Acetaminophen (Percocet 325-5 Mg) 1 - 2 tab PO Q4H PRN PRN Reason: Pain Last Admin: 08/25/17 02:43 Dose: 2 tab Admin: 08/24/17 18:24 Dose: 2 tab Sodium Chloride (Saline Flush) 10 ml FLUSH ASDIRECTED PRN PRN Reason: Keep Vein Open - Assessment Assessment (Free Text/Narrative):: 1. - Plan Plan (Free Text/Narrative):: 1. Shower 2. Teach to strip, empty, measure and record HARVINDER drains 3. Milk of Mag 30 mL followed by Dulcolax 20mg tab in 1 hr 4.Plan discharge in am 5. Abdominal binder 6. Continue IS Aure Cummings 08/25/2017 <Anna Killian - Last Filed: 08/30/17 14:27> - Patient Data Vitals - Most Recent: Last Vital Signs Temp 96.8 F 08/25/17 07:29 Pulse 80 08/25/17 07:29 Resp 16 08/25/17 07:29 BP 120/69 08/25/17 07:29 Pulse Ox 98 08/25/17 07:29 I&O - Last 24 Hours: Intake & Output 08/24/17 08/25/17 08/25/17 22:59 06:59 14:59 Intake Total 50 100 Output Total 1149 915 Balance -1094 -839 Med Orders - Current: Current Medications Bisacodyl (Dulcolax) 20 mg PO ONETIME ONE Stop: 08/25/17 08:31 Last Admin: 08/25/17 07:43 Dose: 20 mg Diphenhydramine HCl (Benadryl) 25 - 50 mg IVPUSH Q6H PRN PRN Reason: ITCHING Last Admin: 08/25/17 02:53 Dose: 50 mg Docusate Sodium (Colace) 100 mg PO BID PRN PRN Reason: Constipation Last Admin: 08/24/17 21:53 Dose: 100 mg Hydroxyzine HCl (Vistaril) 100 mg IM Q4H PRN PRN Reason: PAIN Last Admin: 08/25/17 04:26 Dose: 100 mg Oxytocin/Sodium Chloride (Pitocin In Ns 20 Units/1,000 Ml) 20 units in 1,000 mls @ 6 mls/hr IV TITRATE VAMSI; Protocol Last Titration: 08/23/17 18:57 Dose: 8 munits/min, 24 mls/hr Cefoxitin Sodium 2 gm/ Sodium (Chloride) 50 mls @ 100 mls/hr IV Q6H VAMSI Last Admin: 08/25/17 05:48 Dose: 100 mls/hr Ondansetron HCl (Zofran) 4 mg IVPUSH Q4H PRN PRN Reason: NAUSEA Oxycodone/Acetaminophen (Percocet 325-5 Mg) 1 - 2 tab PO Q4H PRN PRN Reason: Pain Last Admin: 08/25/17 07:46 Dose: 2 tab Sodium Chloride (Saline Flush) 10 ml FLUSH ASDIRECTED PRN PRN Reason: Keep Vein Open Discontinued Medications Bupivacaine HCl (Marcaine 0.5%) Confirm Administered Dose 30 ml .ROUTE .STK-MED ONE Stop: 08/24/17 01:06 Cefoxitin Sodium (Mefoxin) Confirm Administered Dose 1 gm .ROUTE .STK-MED ONE Stop: 08/24/17 00:47 Last Admin: 08/24/17 01:25 Dose: 1 gm Cefoxitin Sodium (Mefoxin) Confirm Administered Dose 2 gm .ROUTE .STK-MED ONE Stop: 08/24/17 01:06 Dexamethasone (Dexamethasone) Confirm Administered Dose 4 mg .ROUTE .STK-MED ONE Stop: 08/24/17 01:06 Ephedrine Sulfate (Ephedrine Sulfate) Confirm Administered Dose 50 mg .ROUTE .STK-MED ONE Stop: 08/23/17 23:02 Last Admin: 08/24/17 05:44 Dose: Not Given Ephedrine Sulfate (Ephedrine Sulfate) Confirm Administered Dose 50 mg .ROUTE .STK-MED ONE Stop: 08/24/17 01:06 Fentanyl (Sublimaze) 100 mcg IVPUSH Q1H PRN PRN Reason: Pain (moderate 4-6) Last Admin: 08/23/17 22:15 Dose: 100 mcg Fentanyl (Sublimaze) Confirm Administered Dose 250 mcg .ROUTE .[facility] ONE Stop: 08/24/17 01:02 Lactated Ringer's (Ringers, Lactated) 1,000 mls @ 25 mls/hr IV ASDIRECTED [facility] Last Admin: 08/23/17 17:20 Dose: 25 mls/hr Ropivacaine (Naropin 0.2%) Confirm Administered Dose 200 mls @ as directed .ROUTE .[facility] ONE Stop: 08/23/17 23:16 Lactated Ringer's (Ringers, Lactated) Confirm Administered Dose 1,000 mls @ as directed .ROUTE .[facility] ONE Stop: 08/24/17 01:17 Sodium Chloride (Normal Saline) Confirm Administered Dose 10 mls @ as directed .ROUTE .[facility] ONE Stop: 08/24/17 01:40 Oxytocin 10 unit/ Dextrose/ (Lactated Ringer's) 1,001 mls @ 175 mls/hr IV ASDIRECTED [facility] Naloxone HCl 0.4 mg/ Sodium (Chloride) 1,001 mls @ 0 mls/hr IV ASDIRECTED PRN; Protocol PRN Reason: ITCHING Last Admin: 08/24/17 16:52 Dose: 0.4 mls/hr, 0.4 mls/hr Dextrose/Lactated Ringer's (Dextrose 5%-Lactated Ringers) 1,000 mls @ 175 mls/ hr IV ASDIRECTED [facility] Last Admin: 08/24/17 16:52 Dose: 100 mls/hr Magnesium Hydroxide (Milk Of Magnesia) 30 ml PO ONETIME ONE Stop: 08/25/17 07:31 Last Admin: 08/25/17 07:42 Dose: 30 ml Meperidine HCl (Demerol) 75 mg IM ONETIME PRN PRN Reason: BREAKTHROUGH PAIN Morphine Sulfate (Duramorph Pf) Confirm Administered Dose 10 mg .ROUTE .[facility] ONE Stop: 08/24/17 01:40 Morphine Sulfate (Duramorph Pf) 0 mg EPIDUR Q12H PRN PRN Reason: PAIN Morphine Sulfate (Duramorph Pf) Confirm Administered Dose 10 mg .ROUTE .[facility] ONE Stop: 08/24/17 10:10 Naloxone HCl (Narcan) 0.1 mg IVPUSH Q5M PRN PRN Reason: IF RESP RATE LESS THAN 6 Ondansetron HCl (Zofran Odt) 4 mg PO Q4H PRN PRN Reason: Nausea/Vomiting Last Admin: 08/23/17 23:26 Dose: 4 mg Ondansetron HCl (Zofran) Confirm Administered Dose 4 mg .ROUTE .STK-MED ONE Stop: 08/24/17 01:06 Oxytocin (Pitocin) Confirm Administered Dose 20 unit .ROUTE .STK-MED ONE Stop: 08/24/17 00:46 Oxytocin (Pitocin) Confirm Administered Dose 10 unit .ROUTE .STK-MED ONE Stop: 08/24/17 01:06 Oxytocin (Pitocin) Confirm Administered Dose 10 unit .ROUTE .STK-MED ONE Stop: 08/24/17 01:06 - Problem List Review Problem List Initiated/Reviewed/Updated: Yes - My Orders Last 24 Hours: Active Orders 24 hr Category Date Time Status Communication Order [RC] ASDIRECTED Care 08/25/17 07:00 Active Communication Order [RC] Per Unit Routine Care 08/25/17 07:00 Active May Shower [RC] ASDIRECTED Care 08/25/17 06:59 Active Full Liquid Diet [DIET] Diet 08/24/17 Breakfast Ordered Acetaminophen/oxyCODONE [Percocet 325-5 MG] Med 08/24/17 17:30 Active 1 - 2 tab PO Q4H PRN Bisacodyl [Dulcolax] Med 08/25/17 08:30 Once 20 mg PO ONETIME ONE Docusate Sodium [Colace] Med 08/24/17 17:33 Active 100 mg PO BID PRN Medication Orders Bisacodyl (Dulcolax) 20 mg PO ONETIME ONE Stop: 08/25/17 08:31 Last Admin: 08/25/17 07:43 Dose: 20 mg Diphenhydramine HCl (Benadryl) 25 - 50 mg IVPUSH Q6H PRN PRN Reason: ITCHING Last Admin: 08/25/17 02:53 Dose: 50 mg Admin: 08/24/17 15:52 Dose: 50 mg Admin: 08/24/17 05:37 Dose: 25 mg Docusate Sodium (Colace) 100 mg PO BID PRN PRN Reason: Constipation Last Admin: 08/24/17 21:53 Dose: 100 mg Hydroxyzine HCl (Vistaril) 100 mg IM Q4H PRN PRN Reason: PAIN Last Admin: 08/25/17 04:26 Dose: 100 mg Oxytocin/Sodium Chloride (Pitocin In Ns 20 Units/1,000 Ml) 20 units in 1,000 mls @ 6 mls/hr IV TITRATE VAMSI; Protocol Last Titration: 08/23/17 18:57 Dose: 8 munits/min, 24 mls/hr Titration: 08/23/17 18:24 Dose: 6 munits/min, 18 mls/hr Titration: 08/23/17 17:55 Dose: 4 munits/min, 12 mls/hr Admin: 08/23/17 17:20 Dose: 2 munits/min, 6 mls/hr Cefoxitin Sodium 2 gm/ Sodium (Chloride) 50 mls @ 100 mls/hr IV Q6H VAMSI Last Admin: 08/25/17 05:48 Dose: 100 mls/hr Admin: 08/24/17 23:30 Dose: 100 mls/hr Admin: 08/24/17 17:20 Dose: 100 mls/hr Admin: 08/24/17 11:44 Dose: 100 mls/hr Admin: 08/24/17 06:05 Dose: 100 mls/hr Ondansetron HCl (Zofran) 4 mg IVPUSH Q4H PRN PRN Reason: NAUSEA Oxycodone/Acetaminophen (Percocet 325-5 Mg) 1 - 2 tab PO Q4H PRN PRN Reason: Pain Last Admin: 08/25/17 07:46 Dose: 2 tab Admin: 08/25/17 02:43 Dose: 2 tab Admin: 08/24/17 18:24 Dose: 2 tab Sodium Chloride (Saline Flush) 10 ml FLUSH ASDIRECTED PRN PRN Reason: Keep Vein Open
[2017-08-25] MEDS ORDERED: Magnesium Hydroxide 400 MG/5 ML Susp 30 ML Cup PO ONE (07:30)
[2017-08-25] MEDS ORDERED: Bisacodyl 5 MG Tab PO ONE (08:30)
[2017-08-25] MEDS ORDERED: Lanolin 100% Cream 40 GM Tube TOP PRN (08:50)
[2017-08-25] MEDS ORDERED: Ondansetron 4 MG Tab.DIS PO PRN (17:40)
[2017-08-25] MEDS ORDERED: diphenhydrAMINE 25 MG Cap PO PRN (17:40)
[2017-08-25] MEDS: Docusate Sodium 100 MG Cap PO PRN (22:08)
[2017-08-26] MEDS: Acetaminophen/oxyCODONE 325-5 MG Tab PO PRN ×3 (00:47→08:45)
--- NOTE | 2017-08-26 07:05 | PCM.DCSUM1 ---
<Aure Stevens - Last Filed: 08/26/17 11:03> Discharge Summary - Hospital Course Free Text/Narrative:: Patient was admitted 08/24/2017 for term labor. Baby was experiencing decelerations and was not tolerating pushing and section was performed at 01:45. An epidural was placed and was used to control pain throughout POD 1. On the morning of the surgery the patient complained of generalized puritis that was keeping her awake at night, anesthesia was consulted. Otherwise patient had no other complications or complaints in the am. On POD 1 patient received Milk of Mag 30 mL followed by Dulcolax to assist with bowel movements. Patient will be discharged with Milk of Mag to continue to help with the passing of stool. - Discharge Data Discharge Date: 08/26/17 Discharge Disposition: Home, Self-Care 01 Condition: Good - Patient Summary/Data Operative Procedure(s) Performed: Section - Patient Instructions Diet: Usual Diet as Tolerated, Drink 8-10+ Glasses/Day Activity: As Tolerated, No Lifting Over 10 Pounds Activity, Other: No lifting more than baby and carseat for 6 weeks. Driving: Do Not Drive (while on narcotic pain medication) Showering/Bathing: May Shower Wound/Incision Care: Keep Operative Site/Wound Site Clean and Dry (Strip, Drain , Measure and record HARVINDER drain ) Notify Provider of: Fever, Increased Pain, Nausea and/or Vomiting Other/Special Instructions: 1. Use Incentive inspirometer 10 times every hour while awake for 1 week. - Discharge Plan Prescriptions/Med Rec: Acetaminophen/oxyCODONE [Percocet 325-5 MG] 1 - 2 tab PO Q4H PRN #40 tablet PRN Reason: Pain Docusate Sodium [Colace] 100 mg PO BID PRN #60 cap PRN Reason: Constipation Home Medications: Home Meds Ondansetron HCl [Zofran] 4 mg PO Q6H PRN 06/20/17 [History] Vit W-Ca,Fe,FA(<1 mg) [ Vitamins] 1 tab PO BEDTIME 06/20/17 [ History] hydrOXYzine Pamoate [Vistaril] 50 mg PO TID PRN #21 cap 08/18/17 [Rx] Acetaminophen/oxyCODONE [Percocet 325-5 MG] 1 - 2 tab PO Q4H PRN #40 tablet 04/14 [Rx] Docusate Sodium [Colace] 100 mg PO BID PRN #60 cap 08/26/17 [Rx] Lanolin [Lansinoh HPA] 0 gm TOP ASDIRECTED PRN tube 08/26/17 [Rx] Referrals: Anna Killian PA-C [Physician Changeover Operator] - 09/02/17 10:00 am - Patient Data Vitals - Most Recent: Last Vital Signs Temp 98.8 F 08/26/17 04:00 Pulse 92 08/26/17 04:00 Resp 16 08/26/17 04:00 BP 121/53 L 08/26/17 04:00 Pulse Ox 98 08/26/17 04:00 Weight - Most Recent: 227 lb 15.998 oz I&O - Last 24 hours: Intake & Output 08/25/17 08/25/17 08/26/17 14:59 22:59 06:59 Intake Total 1800 1500 Output Total 15 15 Balance 1785 1500 -15 Med Orders - Current: Current Medications Diphenhydramine HCl (Benadryl) 25 - 50 mg PO Q4H PRN PRN Reason: Itching Docusate Sodium (Colace) 100 mg PO BID PRN PRN Reason: Constipation Last Admin: 08/25/17 22:08 Dose: 100 mg Emollient Ointment (Lansinoh Hpa) 0 gm TOP ASDIRECTED PRN PRN Reason: Pain Hydroxyzine HCl (Vistaril) 100 mg IM Q4H PRN PRN Reason: PAIN Last Admin: 08/25/17 04:26 Dose: 100 mg Ondansetron HCl (Zofran Odt) 4 mg PO Q4H PRN PRN Reason: Nausea/Vomiting Oxycodone/Acetaminophen (Percocet 325-5 Mg) 1 - 2 tab PO Q4H PRN PRN Reason: Pain Last Admin: 08/26/17 04:35 Dose: 2 tab Discontinued Medications Bisacodyl (Dulcolax) 20 mg PO ONETIME ONE Stop: 08/25/17 08:31 Last Admin: 08/25/17 07:43 Dose: 20 mg Bupivacaine HCl (Marcaine 0.5%) Confirm Administered Dose 30 ml .ROUTE .STK-MED ONE Stop: 08/24/17 01:06 Cefoxitin Sodium (Mefoxin) Confirm Administered Dose 1 gm .ROUTE .[facility] ONE Stop: 08/24/17 00:47 Last Admin: 08/24/17 01:25 Dose: 1 gm Cefoxitin Sodium (Mefoxin) Confirm Administered Dose 2 gm .ROUTE .[facility] ONE Stop: 08/24/17 01:06 Dexamethasone (Dexamethasone) Confirm Administered Dose 4 mg .ROUTE .[facility] ONE Stop: 08/24/17 01:06 Diphenhydramine HCl (Benadryl) 25 - 50 mg IVPUSH Q6H PRN PRN Reason: ITCHING Last Admin: 08/25/17 02:53 Dose: 50 mg Ephedrine Sulfate (Ephedrine Sulfate) Confirm Administered Dose 50 mg .ROUTE .[facility] ONE Stop: 08/23/17 23:02 Last Admin: 08/24/17 05:44 Dose: Not Given Ephedrine Sulfate (Ephedrine Sulfate) Confirm Administered Dose 50 mg .ROUTE .[facility] ONE Stop: 08/24/17 01:06 Fentanyl (Sublimaze) 100 mcg IVPUSH Q1H PRN PRN Reason: Pain (moderate 4-6) Last Admin: 08/23/17 22:15 Dose: 100 mcg Fentanyl (Sublimaze) Confirm Administered Dose 250 mcg .ROUTE .[facility] ONE Stop: 08/24/17 01:02 Oxytocin/Sodium Chloride (Pitocin In Ns 20 Units/1,000 Ml) 20 units in 1,000 mls @ 6 mls/hr IV TITRATE VAMSI; Protocol Last Titration: 08/23/17 18:57 Dose: 8 munits/min, 24 mls/hr Lactated Ringer's (Ringers, Lactated) 1,000 mls @ 25 mls/hr IV ASDIRECTED VAMSI Last Admin: 08/23/17 17:20 Dose: 25 mls/hr Ropivacaine (Naropin 0.2%) Confirm Administered Dose 200 mls @ as directed .ROUTE .[facility] ONE Stop: 08/23/17 23:16 Lactated Ringer's (Ringers, Lactated) Confirm Administered Dose 1,000 mls @ as directed .ROUTE .[facility] ONE Stop: 08/24/17 01:17 Sodium Chloride (Normal Saline) Confirm Administered Dose 10 mls @ as directed .ROUTE .STK-MED ONE Stop: 08/24/17 01:40 Oxytocin 10 unit/ Dextrose/ (Lactated Ringer's) 1,001 mls @ 175 mls/hr IV ASDIRECTED VAMSI Naloxone HCl 0.4 mg/ Sodium (Chloride) 1,001 mls @ 0 mls/hr IV ASDIRECTED PRN; Protocol PRN Reason: ITCHING Last Admin: 08/24/17 16:52 Dose: 0.4 mls/hr, 0.4 mls/hr Cefoxitin Sodium 2 gm/ Sodium (Chloride) 50 mls @ 100 mls/hr IV Q6H [facility] Last Admin: 08/25/17 17:22 Dose: 100 mls/hr Dextrose/Lactated Ringer's (Dextrose 5%-Lactated Ringers) 1,000 mls @ 175 mls/ hr IV ASDIRECTED VAMSI Last Admin: 08/24/17 16:52 Dose: 100 mls/hr Magnesium Hydroxide (Milk Of Magnesia) 30 ml PO ONETIME ONE Stop: 08/25/17 07:31 Last Admin: 08/25/17 07:42 Dose: 30 ml Meperidine HCl (Demerol) 75 mg IM ONETIME PRN PRN Reason: BREAKTHROUGH PAIN Morphine Sulfate (Duramorph Pf) Confirm Administered Dose 10 mg .ROUTE .STK-MED ONE Stop: 08/24/17 01:40 Morphine Sulfate (Duramorph Pf) 0 mg EPIDUR Q12H PRN PRN Reason: PAIN Morphine Sulfate (Duramorph Pf) Confirm Administered Dose 10 mg .ROUTE .STK-MED ONE Stop: 08/24/17 10:10 Naloxone HCl (Narcan) 0.1 mg IVPUSH Q5M PRN PRN Reason: IF RESP RATE LESS THAN 6 Ondansetron HCl (Zofran Odt) 4 mg PO Q4H PRN PRN Reason: Nausea/Vomiting Last Admin: 08/23/17 23:26 Dose: 4 mg Ondansetron HCl (Zofran) Confirm Administered Dose 4 mg .ROUTE .STK-MED ONE Stop: 08/24/17 01:06 Ondansetron HCl (Zofran) 4 mg IVPUSH Q4H PRN PRN Reason: NAUSEA Oxytocin (Pitocin) Confirm Administered Dose 20 unit .ROUTE .STK-MED ONE Stop: 08/24/17 00:46 Oxytocin (Pitocin) Confirm Administered Dose 10 unit .ROUTE .STK-MED ONE Stop: 08/24/17 01:06 Oxytocin (Pitocin) Confirm Administered Dose 10 unit .ROUTE .STK-MED ONE Stop: 08/24/17 01:06 Sodium Chloride (Saline Flush) 10 ml FLUSH ASDIRECTED PRN PRN Reason: Keep Vein Open <Anna Killian - Last Filed: 08/26/17 11:42> - Patient Data Vitals - Most Recent: Last Vital Signs Temp 96.2 F 08/26/17 07:17 Pulse 92 08/26/17 07:17 Resp 16 08/26/17 07:17 BP 124/70 08/26/17 07:17 Pulse Ox 97 08/26/17 07:17 I&O - Last 24 hours: Intake & Output 08/25/17 08/26/17 08/26/17 22:59 06:59 14:59 Intake Total 1500 Output Total 15 Balance 1500 -15 Med Orders - Current: Current Medications Acetaminophen (Tylenol Bulk Bottle) 0 mg PO Q4H PRN PRN Reason: Pain Last Admin: 08/26/17 10:35 Dose: 1 bottle Diphenhydramine HCl (Benadryl) 25 - 50 mg PO Q4H PRN PRN Reason: Itching Docusate Sodium (Colace) 100 mg PO BID PRN PRN Reason: Constipation Last Admin: 08/25/17 22:08 Dose: 100 mg Emollient Ointment (Lansinoh Hpa) 0 gm TOP ASDIRECTED PRN PRN Reason: Pain Hydroxyzine HCl (Vistaril) 100 mg IM Q4H PRN PRN Reason: PAIN Last Admin: 08/25/17 04:26 Dose: 100 mg Ibuprofen (Motrin Bulk Bottle) 600 mg PO Q6H PRN PRN Reason: Pain Last Admin: 08/26/17 10:35 Dose: 1 bottle Ondansetron HCl (Zofran Odt) 4 mg PO Q4H PRN PRN Reason: Nausea/Vomiting Oxycodone/Acetaminophen (Percocet 325-5 Mg) 1 - 2 tab PO Q4H PRN PRN Reason: Pain Last Admin: 08/26/17 08:45 Dose: 2 tab Discontinued Medications Bisacodyl (Dulcolax) 20 mg PO ONETIME ONE Stop: 08/25/17 08:31 Last Admin: 08/25/17 07:43 Dose: 20 mg Bupivacaine HCl (Marcaine 0.5%) Confirm Administered Dose 30 ml .ROUTE .STK-MED ONE Stop: 08/24/17 01:06 Cefoxitin Sodium (Mefoxin) Confirm Administered Dose 1 gm .ROUTE .ST-MED ONE Stop: 08/24/17 00:47 Last Admin: 08/24/17 01:25 Dose: 1 gm Cefoxitin Sodium (Mefoxin) Confirm Administered Dose 2 gm .ROUTE .STK-MED ONE Stop: 08/24/17 01:06 Dexamethasone (Dexamethasone) Confirm Administered Dose 4 mg .ROUTE .ST-MED ONE Stop: 08/24/17 01:06 Diphenhydramine HCl (Benadryl) 25 - 50 mg IVPUSH Q6H PRN PRN Reason: ITCHING Last Admin: 08/25/17 02:53 Dose: 50 mg Ephedrine Sulfate (Ephedrine Sulfate) Confirm Administered Dose 50 mg .ROUTE .ST-MED ONE Stop: 08/23/17 23:02 Last Admin: 08/24/17 05:44 Dose: Not Given Ephedrine Sulfate (Ephedrine Sulfate) Confirm Administered Dose 50 mg .ROUTE .STK-MED ONE Stop: 08/24/17 01:06 Fentanyl (Sublimaze) 100 mcg IVPUSH Q1H PRN PRN Reason: Pain (moderate 4-6) Last Admin: 08/23/17 22:15 Dose: 100 mcg Fentanyl (Sublimaze) Confirm Administered Dose 250 mcg .ROUTE .ST-MED ONE Stop: 08/24/17 01:02 Oxytocin/Sodium Chloride (Pitocin In Ns 20 Units/1,000 Ml) 20 units in 1,000 mls @ 6 mls/hr IV TITRATE VAMSI; Protocol Last Titration: 08/23/17 18:57 Dose: 8 munits/min, 24 mls/hr Lactated Ringer's (Ringers, Lactated) 1,000 mls @ 25 mls/hr IV ASDIRECTED VAMSI Last Admin: 08/23/17 17:20 Dose: 25 mls/hr Ropivacaine (Naropin 0.2%) Confirm Administered Dose 200 mls @ as directed .ROUTE .[facility] ONE Stop: 08/23/17 23:16 Lactated Ringer's (Ringers, Lactated) Confirm Administered Dose 1,000 mls @ as directed .ROUTE .[facility] ONE Stop: 08/24/17 01:17 Sodium Chloride (Normal Saline) Confirm Administered Dose 10 mls @ as directed .ROUTE .[facility] ONE Stop: 08/24/17 01:40 Oxytocin 10 unit/ Dextrose/ (Lactated Ringer's) 1,001 mls @ 175 mls/hr IV ASDIRECTED VAMSI Naloxone HCl 0.4 mg/ Sodium (Chloride) 1,001 mls @ 0 mls/hr IV ASDIRECTED PRN; Protocol PRN Reason: ITCHING Last Admin: 08/24/17 16:52 Dose: 0.4 mls/hr, 0.4 mls/hr Cefoxitin Sodium 2 gm/ Sodium (Chloride) 50 mls @ 100 mls/hr IV Q6H [facility] Last Admin: 08/25/17 17:22 Dose: 100 mls/hr Dextrose/Lactated Ringer's (Dextrose 5%-Lactated Ringers) 1,000 mls @ 175 mls/ hr IV ASDIRECTED VAMSI Last Admin: 08/24/17 16:52 Dose: 100 mls/hr Magnesium Hydroxide (Milk Of Magnesia) 30 ml PO ONETIME ONE Stop: 08/25/17 07:31 Last Admin: 08/25/17 07:42 Dose: 30 ml Magnesium Hydroxide (Milk Of Magnesia) 30 ml PO ONETIME ONE Stop: 08/26/17 08:31 Last Admin: 08/26/17 10:36 Dose: Not Given Meperidine HCl (Demerol) 75 mg IM ONETIME PRN PRN Reason: BREAKTHROUGH PAIN Morphine Sulfate (Duramorph Pf) Confirm Administered Dose 10 mg .ROUTE .[facility] ONE Stop: 08/24/17 01:40 Morphine Sulfate (Duramorph Pf) 0 mg EPIDUR Q12H PRN PRN Reason: PAIN Morphine Sulfate (Duramorph Pf) Confirm Administered Dose 10 mg .ROUTE .[facility] ONE Stop: 08/24/17 10:10 Naloxone HCl (Narcan) 0.1 mg IVPUSH Q5M PRN PRN Reason: IF RESP RATE LESS THAN 6 Ondansetron HCl (Zofran Odt) 4 mg PO Q4H PRN PRN Reason: Nausea/Vomiting Last Admin: 08/23/17 23:26 Dose: 4 mg Ondansetron HCl (Zofran) Confirm Administered Dose 4 mg .ROUTE .STK-MED ONE Stop: 08/24/17 01:06 Ondansetron HCl (Zofran) 4 mg IVPUSH Q4H PRN PRN Reason: NAUSEA Oxytocin (Pitocin) Confirm Administered Dose 20 unit .ROUTE .[facility] ONE Stop: 08/24/17 00:46 Oxytocin (Pitocin) Confirm Administered Dose 10 unit .ROUTE .[facility] ONE Stop: 08/24/17 01:06 Oxytocin (Pitocin) Confirm Administered Dose 10 unit .ROUTE .[facility] ONE Stop: 08/24/17 01:06 Sodium Chloride (Saline Flush) 10 ml FLUSH ASDIRECTED PRN PRN Reason: Keep Vein Open
[2017-08-26 07:25] VITALS: BP 124/70
[2017-08-26] MEDS ORDERED: Acetaminophen 325 MG Tab, 50 Tab Bulk Bottle PO PRN (08:08)
[2017-08-26] MEDS ORDERED: Ibuprofen 200 MG Tab, 24 Tab Bulk Bottle PO PRN (08:08)
[2017-08-26] MEDS ORDERED: Magnesium Hydroxide 400 MG/5 ML Susp 30 ML Cup PO ONE (08:30)
--- NOTE | 2017-09-07 10:31 | OR ---
DATE OF PROCEDURE: 08/24/2017 PREOPERATIVE DIAGNOSIS: Term with decelerations and failure to progress. POSTOPERATIVE DIAGNOSIS: Term with decelerations and failure to progress. OPERATIVE PROCEDURE: section (95094). ANESTHESIA: Epidural. POLISHER AND SANDER: Mary Ann Cramer CNM. INDICATIONS FOR PROCEDURE: This is a 22-year-old presenting in labor. She progressed initially well, but then has not progressed beyond the present status and is now beginning to show some decelerations. Given this, plan is to proceed with a section. Potential risks including bleeding, infection, injury to the baby and/or mother were reviewed, and the patient wishes to proceed. DETAILS OF PROCEDURE: The patient was taken to the operating room and placed in a supine position with a roll underneath the right hip. A Tomas catheter was inserted, and the epidural catheter used to administer the anesthetic. The abdomen was then prepped and draped. A transverse Pfannenstiel-type incision was made and carried down through the skin and subcutaneous tissue and rectus sheath. Subrectus sheath flaps were then raised superiorly and inferiorly, and the midline musculature and peritoneum were then divided. The peritoneal reflection of bladder on the uterus was then divided and reflected downward, and a transverse low uterine segment incision was made, and a viable male was delivered through a vertex presentation. The baby's head was deeply impacted in the pelvis requiring manual mobilization of the head from a vaginal approach upward. Cord was clamped and cut. Routine care given off the field. This was a viable male and scores were 9 and 9 at 1 and 5 minutes respectively. The patient was given IV and intrauterine oxytocin and IV cefoxitin. Good uterine contractions were noted, and the placenta was delivered without difficulty. The uterus was then closed with 2 layers of 2-0 Vicryl stitch as was the peritoneal reflection of bladder on the uterus. The midline peritoneum and musculature were then approximated with a #2 Vicryl stitch as was the anterior rectus sheath. The skin then closed with a 4-0 Vicryl subcuticular stitch. Dressing was applied. The patient was taken to the recovery room in a satisfactory condition. There were no evident complications. Rony Sampson MD /[id number]
== END 2017-08-26 10:55 | disposition home or self-care (01) | DRG 766 ==
LOC: JP.OBCHECK 12:01 → JP.OB 12:45 → OBSVTOIN 08-24 00:59 → JP.MS 08-24 01:20
PROVIDERS: ADMIT Nurse Practitioner Family; ATTEND Nurse Practitioner Family
PROC: 00HU33Z Insertion of Infusion Device into Spinal Canal, Percutaneous Approach (ICD-10-PCS; 2017-08-23)
PROC: 10D00Z1 Extraction of Products of Conception, Low, Open Approach (ICD-10-PCS; principal; 2017-08-24)
DX: O76 Abnormality in fetal heart rate and rhythm complicating labor and delivery (principal); O99.344 Other mental disorders complicating childbirth; Z3A.39 39 weeks gestation of pregnancy; Z37.0 Single live birth; L29.9 Pruritus, unspecified; Z91.5 Personal history of self-harm
CPT/HCPCS: 36415; 51702; 59409; 80305; 81001; 84112; 85025; 86850; 86900; 86901; 88307; 99211; A9270-GY; J0694; J1100; J1200; J2270; J2310; J2405; J2590; J2795; J3010; J3410; J7030; J7042; J7050; J7120

== ENCOUNTER 2018-10-15 11:53 | Emergency (ER) | payer MEDICAID ==
[2018-10-15 12:42] VITALS: BP 118/69; PULSE 70
[2018-10-15] MEDS ORDERED: Sodium Chloride 0.9% 1,000 ML IV SCH ×2 (13:00→14:30)
--- NOTE | 2018-10-15 13:07 | EDM.PDOC ---
ED HPI GENERAL MEDICAL PROBLEM - General Chief Complaint: Abdominal Pain Stated Complaint: STOMACH/ABD PAIN, DIARRHEA Time Seen by Provider: 10/15/18 13:01 Source of Information: Reports: Patient History Limitations: Reports: No Limitations - History of Present Illness INITIAL COMMENTS - FREE TEXT/NARRATIVE: pt has been ill for 1 wek. She has been having severe diarrhea. Yesterday she thinks she may hve had 20 stools. Onset: Other ( this started 1 week ago, ) Duration: Hour(s): Location: Reports: Abdomen Associated Symptoms: Reports: Malaise Abdomen Pain Score (Numeric/FACES): 8 - Related Data Allergies Allergy/AdvReac Type Severity Reaction Status Date / Time No Known Allergies Allergy Verified 12/27/14 01:18 Home Meds: Home Meds NK [No Known Home Meds] 10/15/18 [History] Past Medical History Gastrointestinal History: Reports: GERD Other Gastrointestinal History: reflux Genitourinary History: Reports: UTI, Recurrent INCIDENT COORDINATOR History: Reports: Other INCIDENT COORDINATOR History: ovarian cyst. hymenectomy. LMP 10/30/16 Musculoskeletal History: Reports: Fracture Other Musculoskeletal History: left arm. fx R ankle Psychiatric History: Reports: ADD, Anxiety, Depression, Suicide Attempt, Suicidal Ideation Other Psychiatric History: had a suicidal attempt with pills 3 yrs ago - Infectious Disease History Infectious Disease History: Reports: Chicken Pox - Past Surgical History GI Surgical History: Reports: Appendectomy Female Surgical History: Reports: Section, Other (See Below) Other Female Surgeries/Procedures: hymenectomy Social & Family History - Family History Family Medical History: Noncontributory - Tobacco Use Smoking Status *Q: Heavy Tobacco Smoker Years of Tobacco use: 5 Packs/Tins Daily: 0.5 - Caffeine Use Caffeine Use: Reports: Coffee - Recreational Drug Use Recreational Drug Use: No ED ROS GENERAL - Review of Systems Review Of Systems: See Below Constitutional: Reports: Malaise, Weakness HEENT: Reports: No Symptoms Respiratory: Reports: No Symptoms Cardiovascular: Reports: No Symptoms Endocrine: Reports: No Symptoms GI/Abdominal: Reports: Abdominal Pain, Diarrhea, Other (pt had 20 stools yesterday. ) : Reports: No Symptoms Musculoskeletal: Reports: No Symptoms Skin: Reports: No Symptoms ED EXAM, GI/ABD - Physical Exam Exam: See Below Text/Narrative:: Pt arrived with a history of severe diarrhea. She had 20 stools yesterday. She had had some nausea but has not vomited alot. She has not been on recent antibiotics. . Exam Limited By: No Limitations General Appearance: Alert, Anxious, Mild Distress Ears: Normal TMs Nose: Normal Inspection Throat/Mouth: Normal Inspection Head: Atraumatic Neck: Normal Inspection Respiratory/Chest: No Respiratory Distress Cardiovascular: Regular Rate, Rhythm GI/Abdominal Exam: Soft, Non-Tender (Female) Exam: Deferred Rectal (Female) Exam: Deferred Back Exam: Normal Inspection Extremities: Normal Inspection Course - Vital Signs Last Recorded V/S: Last Vital Signs Temp 36.0 C 10/15/18 12:42 Pulse 70 10/15/18 12:42 Resp 20 10/15/18 12:42 BP 118/69 10/15/18 12:42 Pulse Ox 98 10/15/18 12:42 - Orders/Labs/Meds Orders: Active Orders 24 hr Category Date Time Status CLOSTRIDIUM DIFFICILE BY PCR [RM] Stat Lab 10/15/18 12:59 Ordered Sodium Chloride 0.9% [Normal Saline] 1,000 ml Med 10/15/18 13:00 Active IV ASDIRECTED Sodium Chloride 0.9% [Normal Saline] 1,000 ml Med 10/15/18 14:30 Active IV ASDIRECTED Isolation [COMM] Stat Oth 10/15/18 13:00 Ordered Medication Orders Sodium Chloride (Normal Saline) 1,000 mls @ 999 mls/hr IV ASDIRECTED VAMSI Last Admin: 10/15/18 13:09 Dose: 999 mls/hr Sodium Chloride (Normal Saline) 1,000 mls @ 999 mls/hr IV ASDIRECTED VAMSI Last Admin: 10/15/18 15:02 Dose: 999 mls/hr Labs: Laboratory Tests 10/15/18 10/15/18 10/15/18 Range/Units 13:09 13:09 13:38 WBC 6.1 (4.5-11.0) K/uL RBC 4.77 (3.30-5.50) M/uL Hgb 13.4 (12.0-15.0) g/dL Hct 41.4 (36.0-48.0) % MCV 87 (80-98) fL MCH 28 (27-31) pg MCHC 32 (32-36) % Plt Count 236 (150-400) K/uL Neut % (Auto) 68 H (36-66) % Lymph % (Auto) 22 L (24-44) % [place] % (Auto) 9 H (2-6) % Eos % (Auto) 1 L (2-4) % Baso % (Auto) 0 (0-1) % Sodium 140 (140-148) mmol/L Potassium 3.9 (3.6-5.2) mmol/L Chloride 107 (100-108) mmol/L Carbon Dioxide 23 (21-32) mmol/L Anion Gap 9.8 (5.0-14.0) mmol/L BUN 11 (7-18) mg/dL Creatinine 0.7 (0.6-1.0) mg/dL Est Cr Clr Drug Dosing 95.93 mL/min Estimated GFR (MDRD) > 60 (>60) Glucose 93 (74-106) mg/dL Calcium 9.1 (8.5-10.1) mg/dL Total Bilirubin 0.3 D (0.2-1.0) mg/dL AST 18 (15-37) U/L ALT 26 (12-78) U/L Alkaline Phosphatase 55 (46-116) U/L Total Protein 7.0 (6.4-8.2) g/dL Albumin 3.5 (3.4-5.0) g/dL Globulin 3.5 (2.3-3.5) g/dL Albumin/Globulin Ratio 1.0 L (1.2-2.2) Urine Color Yellow Urine Appearance Slightly cloudy Urine pH 5.0 (4.5-8.0) Ur Specific [place] 1.015 (1.008-1.030) Urine Protein Negative (NEGATIVE) mg/dL Urine Glucose (UA) Normal (NEGATIVE) mg/dL Urine Ketones Negative (NEGATIVE) mg/dL Urine Occult Blood Negative (NEGATIVE) Urine Nitrite Negative (NEGATIVE) Urine Bilirubin Negative (NEGATIVE) Urine Urobilinogen Normal (NORMAL) mg/dL Ur Leukocyte Esterase Negative (NEGATIVE) Urine RBC 0-5 (0-5) Urine WBC 0-5 (0-5) Ur Epithelial Cells Rare Amorphous Sediment Not seen Urine Bacteria Rare Urine Mucus Not seen Meds: Medications Generic Name Dose Route Start Last Admin Trade Name Freq PRN Reason Stop Dose Admin Sodium Chloride 1,000 mls @ 999 mls/hr 10/15/18 13:00 10/15/18 13:09 Normal Saline IV 999 mls/hr ASDIRECTED VAMSI Administration Sodium Chloride 1,000 mls @ 999 mls/hr 10/15/18 14:30 10/15/18 15:02 Normal Saline IV 999 mls/hr ASDIRECTED VAMSI Administration Discontinued Medications Generic Name Dose Route Start Last Admin Trade Name Anjali PRN Reason Stop Dose Admin Ketorolac Tromethamine 30 mg 10/15/18 14:29 10/15/18 15:02 Toradol IVPUSH 10/15/18 14:30 30 mg ONETIME ONE Administration - Re-Assessments/Exams Free Text/Narrative Re-Assessment/Exam: 10/15/18 15:56 pt was hydrated with 2 liters of fluid. She was given torodol for pain and she is much more comfortable. She has not been able to give a stool. Will obtain as a outpt. Departure - Departure Time of Disposition: 15:50 Disposition: Home, Self-Care 01 Condition: Fair Clinical Impression: Diarrhea, Abdominal pain - Discharge Information Referrals: Mary Ann Cramer CNM [Primary Care Provider] - Forms: ED Department Discharge Care Plan Goals: clear liquid diet, if diarrhea come back severe bring in stool specimans--send a speciman cup home with a hat to collect the stool. Pt could take imodium 1- 2 tabs after each loose stool. - My Orders Last 24 Hours: My Active Orders 10/15/18 12:59 CLOSTRIDIUM DIFFICILE BY PCR [RM] Stat 10/15/18 13:00 Sodium Chloride 0.9% [Normal Saline] 1,000 ml IV ASDIRECTED Isolation [COMM] Stat 10/15/18 14:30 Sodium Chloride 0.9% [Normal Saline] 1,000 ml IV ASDIRECTED - Assessment/Plan Last 24 Hours: My Active Orders 10/15/18 12:59 CLOSTRIDIUM DIFFICILE BY PCR [RM] Stat 10/15/18 13:00 Sodium Chloride 0.9% [Normal Saline] 1,000 ml IV ASDIRECTED Isolation [COMM] Stat 10/15/18 14:30 Sodium Chloride 0.9% [Normal Saline] 1,000 ml IV ASDIRECTED
[2018-10-15] MEDS ORDERED: Ketorolac 30 MG/ML SDV IVPUSH ONE (14:29)
== END 2018-10-15 16:11 | disposition home or self-care (01) ==
LOC: JP.ED 11:53
DX: R19.7 Diarrhea, unspecified (principal); R10.9 Unspecified abdominal pain; F17.210 Nicotine dependence, cigarettes, uncomplicated
CPT/HCPCS: 36415; 80053; 81001; 85025; 96361; 96374; 99284; J1885; J7030

== ENCOUNTER 2018-10-16 05:49 | Emergency (ER) | payer MEDICAID ==
[2018-10-16 06:08] VITALS: BP 142/83; PULSE 65
== END 2018-10-16 06:49 | disposition home or self-care (01) ==
LOC: JP.ED 05:49
DX: Z53.21 Procedure and treatment not carried out due to patient leaving prior to being seen by health care provider (principal)
CPT/HCPCS: 87046; 87177; 87209; 87493; 87899; 99283

== ENCOUNTER 2019-12-08 08:22 | Emergency (ER) | payer MEDICAID ==
[2019-12-08 08:45] VITALS: BP 125/77; PULSE 86
[2019-12-08] MEDS ORDERED: Ketorolac 60 MG/2 ML SDV IM ONE (09:04)
[2019-12-08] MEDS ORDERED: Ondansetron 4 MG Tab.DIS PO ONE (09:04)
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
== END 2019-12-08 11:02 | disposition home or self-care (01) ==
LOC: JP.ED 08:22
DX: S06.0X0A Concussion without loss of consciousness, initial encounter (principal); S02.40DA Maxillary fracture, left side, initial encounter for closed fracture; S00.83XA Contusion of other part of head, initial encounter; F17.210 Nicotine dependence, cigarettes, uncomplicated; Z90.49 Acquired absence of other specified parts of digestive tract; Y04.0XXA Assault by unarmed brawl or fight, initial encounter
CPT/HCPCS: 70450; 70486; 96372; 99283; A9270; J1885

== ENCOUNTER 2019-12-09 08:53 | Emergency (ER) | payer MEDICAID ==
[2019-12-09 09:11] VITALS: BP 126/75; PULSE 82
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
[2019-12-09] MEDS ORDERED: Ketorolac 30 MG/ML SDV IVPUSH ONE (09:26)
== END 2019-12-09 10:20 | disposition home or self-care (01) ==
LOC: JP.ED 08:53
DX: S00.12XA Contusion of left eyelid and periocular area, initial encounter (principal); L03.012 Cellulitis of left finger; F17.210 Nicotine dependence, cigarettes, uncomplicated; Y04.0XXA Assault by unarmed brawl or fight, initial encounter
CPT/HCPCS: 87070; 87077; 87205; 96365; 96375; 99283; J1885; J3490; J7050; 99285

== ENCOUNTER 2019-12-09 17:24 | Emergency (ER) | payer MEDICAID ==
[2019-12-09] MEDS ORDERED: Sulfamethoxazole/Trimethoprim 800-160 MG Tab PO ONE (17:25)
[2019-12-09 17:31] VITALS: BP 127/70; PULSE 98
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
--- NOTE | 2019-12-10 09:51 | CR ---
Hand 2V Lt CLINICAL HISTORY: Possible foreign body FINDINGS: AP and lateral views of the hand and wrist were obtained. There is a marker near the fifth digit. No radiopaque foreign bodies identified. There is no fracture or osseous lesion. Impression: Negative
== END 2019-12-09 19:32 | disposition home or self-care (01) ==
LOC: JP.ED 17:24
DX: L03.012 Cellulitis of left finger (principal); F17.210 Nicotine dependence, cigarettes, uncomplicated
CPT/HCPCS: 73120; 96365; 96366; 99283; A9270; J3370; J7050

== ENCOUNTER 2020-02-03 18:50 | Emergency (ER) | payer MEDICAID ==
[2020-02-03 19:17] VITALS: BP 112/65; PULSE 89
--- NOTE | 2020-02-03 19:25 | EDM.PDOC ---
ED HPI GENERAL MEDICAL PROBLEM - General Chief Complaint: Genitourinary Problem Stated Complaint: DAVIDIN Time Seen by Provider: 02/03/20 19:25 Source of Information: Reports: Patient History Limitations: Reports: No Limitations - History of Present Illness INITIAL COMMENTS - FREE TEXT/NARRATIVE: pt arrived very uncomfortable with multiple lesions on the [place]on area. She states these have broke out more since she was seen at [facility]. She had a neg urine and chalmydia at the clinic. Onset: Today Duration: Hour(s): Location: Reports: Other ([place]. 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 hymenectomy Musculoskeletal History: Reports: Fracture Other Musculoskeletal History: left arm. fx R ankle Psychiatric History: Reports: ADD, Anxiety, Depression, Suicide Attempt, Suicidal Ideation Other Psychiatric History: had a suicidal attempt with pills - Infectious Disease History Infectious Disease History: Reports: Chicken Pox - Past Surgical History GI Surgical History: Reports: Appendectomy Female Surgical History: Reports: Section, Other (See Below) Other Female Surgeries/Procedures: hymenectomy Social & Family History - Family History Family Medical History: Noncontributory - Tobacco Use Tobacco Use Status *Q: Never Tobacco User - Caffeine Use Caffeine Use: Reports: Coffee ED ROS GENERAL - Review of Systems Review Of Systems: See Below Constitutional: Reports: No Symptoms HEENT: Reports: No Symptoms Respiratory: Reports: No Symptoms Cardiovascular: Reports: No Symptoms Endocrine: Reports: No Symptoms GI/Abdominal: Reports: No Symptoms : Reports: Other (pt has multiple painful lesion on the brandon area. ) ED EXAM, RENAL/ - Physical Exam Exam: See Below Text/Narrative:: pt arrived with alot of pain and multiple lesions on the brandon area. Exam Limited By: No Limitations General Appearance: Alert, Anxious Ears: Normal TMs Nose: Normal Inspection Throat/Mouth: Normal Inspection Head: Atraumatic Neck: Normal Inspection Respiratory/Chest: No Respiratory Distress Cardiovascular: Regular Rate, Rhythm GI/Abdominal: Soft, Non-Tender (Female) Exam: Other (multiple lesion on the brandon area) Rectal (Female) Exam: Other (pt has lesions around the rectum also. ) Back Exam: Normal Inspection Extremities: Normal Inspection Course - Vital Signs Last Recorded V/S: Last Vital Signs Temp 36.4 C 02/03/20 19:15 Pulse 89 02/03/20 19:15 Resp 14 02/03/20 19:15 BP 112/65 02/03/20 19:15 Pulse Ox 98 02/03/20 19:15 - Orders/Labs/Meds Orders: Active Orders 24 hr Category Date Time Status HSV CULTURE AND TYPING Stat Lab 02/03/20 19:52 Ordered Acyclovir [Zovirax] Med 02/03/20 20:01 Once 400 mg PO ONETIME ONE Medication Orders Acyclovir (Zovirax) 400 mg PO ONETIME ONE Stop: 02/03/20 20:02 Labs: Laboratory Tests 02/03/20 Range/Units 19:36 Urine Color Yellow (YELLOW) Urine Appearance Clear (CLEAR) Urine pH 6.0 (5.0-8.0) Ur Specific [place] >= 1.030 (1.008-1.030) Urine Protein Negative (NEGATIVE) mg/dL Urine Glucose (UA) Negative (NEGATIVE) mg/dL Urine Ketones Negative (NEGATIVE) mg/dL Urine Occult Blood Trace-lysed H (NEGATIVE) Urine Nitrite Negative (NEGATIVE) Urine Bilirubin Negative (NEGATIVE) Urine Urobilinogen 0.2 (0.2-1.0) EU/dL Ur Leukocyte Esterase Small H (NEGATIVE) Urine RBC 0-5 (0-5) Urine WBC 10-20 H (0-5) Ur Epithelial Cells Few Urine Bacteria Not seen Meds: Medications Generic Name Dose Route Start Last Admin Trade Name Freq PRN Reason Stop Dose Admin Acyclovir 400 mg 02/03/20 20:01 Zovirax PO 02/03/20 20:02 ONETIME ONE Discontinued Medications Generic Name Dose Route Start Last Admin Trade Name Freq PRN Reason Stop Dose Admin Hydromorphone HCl 0.5 mg 11/08/20 19:51 Dilaudid IM 02/03/20 19:52 ONETIME ONE - Re-Assessments/Exams Free Text/Narrative Re-Assessment/Exam: 02/03/20 20:01 culture of the lesions were obtained to type the Herpes. Departure - Departure Time of Disposition: 19:55 Disposition: Home, Self-Care 01 Condition: Fair Clinical Impression: Herpes genitalis - Discharge Information Referrals: PCP,None [Primary Care Provider] - Forms: ED Department Discharge Care Plan Goals: tub soak bid, norco 5/325 q6h prn for pain, zovirax 400mg 5 times daily for 5 days, zovirax cream apply to the area tid, will notify of culture result, see regular Dr in the next 5 days. Sepsis Event Note (ED) - Evaluation Sepsis Screening Result: No Definite Risk - Focused Exam Vital Signs: Vital Signs Temp Pulse Resp BP Pulse Ox 02/03/20 19:15 36.4 C 89 14 112/65 98 - My Orders Last 24 Hours: My Active Orders 02/03/20 19:52 HSV CULTURE AND TYPING Stat 02/03/20 20:01 Acyclovir [Zovirax] 400 mg PO ONETIME ONE - Assessment/Plan Last 24 Hours: My Active Orders 02/03/20 19:52 HSV CULTURE AND TYPING Stat 02/03/20 20:01 Acyclovir [Zovirax] 400 mg PO ONETIME ONE
[2020-02-03] MEDS ORDERED: HYDROmorphone 0.5 MG/0.5 ML Syringe IM ONE (19:51)
[2020-02-03] MEDS ORDERED: Acyclovir 200 MG Cap PO ONE (20:01)
== END 2020-02-03 20:37 | disposition home or self-care (01) ==
LOC: JP.ED 18:50
DX: A60.09 Herpesviral infection of other urogenital tract (principal); Z90.49 Acquired absence of other specified parts of digestive tract
CPT/HCPCS: 80305; 81001; 87255; 96372; 99283; A9270; J1170

== ENCOUNTER 2020-09-03 04:13 | Emergency (ER) | payer MEDICAID ==
[2020-09-03 04:27] VITALS: BP 104/74; PULSE 85
[2020-09-03] MEDS ORDERED: Ketorolac 60 MG/2 ML SDV IM ONE (04:35)
--- NOTE | 2020-09-03 04:37 | EDM.PDOC ---
ED HPI GENERAL MEDICAL PROBLEM - General Chief Complaint: General Stated Complaint: 13 WEEKS AND CRAMPING Time Seen by Provider: 09/03/20 04:36 Source of Information: Reports: Patient, Old Records, RN History Limitations: Reports: No Limitations - History of Present Illness INITIAL COMMENTS - FREE TEXT/NARRATIVE: 25 yo NA female presents with LLQ abdominal pain that began about 10 hrs ago. She took acetaminophen and fell asleep only to awaken about 6 hrs later due to the pain and came in. Nothing seems to make the pain worse or better. Has some urinary frequency that is not new. No nausea or fever. Had a similar pain in the past and went to the clinic and was told "the baby looks OK". No constipation or diarrhea. Onset: Sudden Onset Date: 09/02/20 Onset Time: 20:00 Duration: Hour(s):, Constant Location: Reports: Abdomen Quality: Reports: Pressure Severity: Moderate Improves with: Reports: Medication Worsens with: Reports: None Context: Reports: Other (see HPI) Associated Symptoms: Reports: No Other Symptoms. 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 hymenectomy Musculoskeletal History: Reports: Fracture Other Musculoskeletal History: left arm. fx R ankle Neurological History: Reports: Concussion Psychiatric History: Reports: ADD, Anxiety, Depression, Suicide Attempt, Suicidal Ideation Other Psychiatric History: had a suicidal attempt with pills - Infectious Disease History Infectious Disease History: Reports: Chicken Pox - Past Surgical History GI Surgical History: Reports: Appendectomy Female Surgical History: Reports: Section, Other (See Below) Other Female Surgeries/Procedures: hymenectomy Social & Family History - Family History Family Medical History: No Pertinent Family History - Tobacco Use Tobacco Use Status *Q: Never Tobacco User - Caffeine Use Caffeine Use: Reports: Coffee ED ROS GENERAL - Review of Systems Review Of Systems: See Below Constitutional: Reports: No Symptoms HEENT: Reports: No Symptoms Respiratory: Reports: No Symptoms Cardiovascular: Reports: No Symptoms GI/Abdominal: Reports: Abdominal Pain (LLQ). Denies: Constipation, Diarrhea, Nausea, Vomiting : Reports: Frequency. Denies: Dysuria, Hematuria Musculoskeletal: Reports: No Symptoms Skin: Reports: No Symptoms Neurological: Reports: No Symptoms Psychiatric: Reports: No Symptoms ED EXAM, GENERAL - Physical Exam Exam: See Below Exam Limited By: No Limitations General Appearance: Alert, WD/WN, No Apparent Distress Eye Exam: Bilateral Eye: Normal Inspection Ears: Normal External Exam, Normal Canal, Hearing Grossly Normal Ear Exam: Bilateral Ear: Auricle Normal, Canal Normal Nose: Normal Inspection, No Blood Throat/Mouth: Normal Lips, Normal Voice, No Airway Compromise Head: Atraumatic, Normocephalic Neck: Normal Inspection Respiratory/Chest: No Respiratory Distress, No Accessory Muscle Use Cardiovascular: Regular Rate, Rhythm GI/Abdominal: Normal Bowel Sounds, Soft, Non-Tender, No Distention. No: Distended Extremities: Normal Inspection Neurological: Alert, Oriented, CN II-XII Intact, Normal Cognition, No Motor/Sensory Deficits Psychiatric: Normal Affect, Normal Mood Skin Exam: Warm, Dry, Intact, Normal Color, No Rash Course - Vital Signs Last Recorded V/S: Last Vital Signs Temp 36.5 C 09/03/20 04:26 Pulse 85 09/03/20 04:26 Resp 18 09/03/20 04:26 BP 104/74 09/03/20 04:26 Pulse Ox 99 09/03/20 04:26 - Orders/Labs/Meds Labs: Laboratory Tests 09/03/20 09/03/20 Range/Units 04:37 05:10 WBC 6.6 (4.5-11.0) K/uL RBC 4.20 (3.30-5.50) M/uL Hgb 12.0 (12.0-15.0) g/dL Hct 36.9 (36.0-48.0) % MCV 88 (80-98) fL MCH 29 (27-31) pg MCHC 33 (32-36) % Plt Count 234 (150-400) K/uL Urine Color Yellow (YELLOW) Urine Appearance Cloudy A (CLEAR) Urine pH 6.5 (5.0-8.0) Ur Specific [place] >= 1.030 (1.008-1.030) Urine Protein Negative (NEGATIVE) mg/dL Urine Glucose (UA) Negative (NEGATIVE) mg/dL Urine Ketones Negative (NEGATIVE) mg/dL Urine Occult Blood Trace-intact H (NEGATIVE) Urine Nitrite Negative (NEGATIVE) Urine Bilirubin Negative (NEGATIVE) Urine Urobilinogen 0.2 (0.2-1.0) EU/dL Ur Leukocyte Esterase Negative (NEGATIVE) Urine RBC 0-5 (0-5) Urine WBC 0-5 (0-5) Ur Epithelial Cells Few Amorphous Sediment Few Urine Bacteria Many Urine Mucus Rare Meds: Medications Discontinued Medications Generic Name Dose Route Start Last Admin Trade Name Freq PRN Reason Stop Dose Admin Acetaminophen 1,000 mg 09/03/20 04:45 09/03/20 04:51 Acetaminophen 500 Mg Tab PO 09/03/20 04:46 1,000 mg ONETIME ONE Administration Ketorolac Tromethamine 60 mg 09/03/20 04:35 Ketorolac 60 Mg/2 Ml Sdv IM 09/03/20 04:36 ONETIME ONE Departure - Departure Time of Disposition: 05:25 Disposition: Home, Self-Care 01 Condition: Good Clinical Impression: Round ligament pain - Discharge Information *PRESCRIPTION DRUG MONITORING PROGRAM REVIEWED*: Not Applicable *COPY OF PRESCRIPTION DRUG MONITORING REPORT IN PATIENT VANDANA: Not Applicable Referrals: Carolina Ybarra CNM [Primary Care Provider] - Forms: ED Department Discharge Additional Instructions: Take acetaminophen up to 1000 mg every 6 hrs as needed for pain relief. Recheck with your doctor if needed. Sepsis Event Note (ED) - Evaluation Sepsis Screening Result: No Definite Risk - Focused Exam Vital Signs: Vital Signs Temp Pulse Resp BP Pulse Ox 09/03/20 04:26 36.5 C 85 18 104/74 99 09/03/20 04:25 36.5 C 85 18 104/74 99
[2020-09-03] MEDS ORDERED: Acetaminophen 500 MG Tab PO ONE (04:45)
== END 2020-09-03 05:29 | disposition home or self-care (01) ==
LOC: JP.ED 04:13
DX: O99.891 Other specified diseases and conditions complicating pregnancy (principal); R10.2 Pelvic and perineal pain; Z3A.13 13 weeks gestation of pregnancy
CPT/HCPCS: 36415; 81001; 85027; 99284; A9270; 99283

== ENCOUNTER 2021-02-12 20:28 | Emergency (ER) | payer MEDICAID ==
--- NOTE | 2021-02-12 21:08 | EDM.PDOC ---
ED HPI GENERAL MEDICAL PROBLEM - General Chief Complaint: Chest Pain Stated Complaint: CHEST PAIN Time Seen by Provider: 02/12/21 20:45 Source of Information: Reports: Patient History Limitations: Reports: No Limitations - History of Present Illness INITIAL COMMENTS - FREE TEXT/NARRATIVE: 25-year-old female with intermittent sharp chest pains, she is 36 weeks gestation and was diagnosed with Covid 2 weeks ago. She has no shortness of breath, no cough, she went into OB to have it checked because she thought her blood pressure was high. She has had preeclampsia issues in the past. All her vitals were normal, blood pressure was normal, and there was no OB concerns so she was sent to the emergency room to discuss her chest pains. When she has pain, it hurts to breathe, and if she relaxes it resolves within minutes. It is very sharp and localized, both sides of her sternum. Onset: Unknown/Unsure Duration: Day(s): (Pain has been recurring intermittently for 7 days) Location: Reports: Chest (Anterior chest) Quality: Reports: Sharp Chest Pain Score (Numeric/FACES): 6 - Related Data Allergies Allergy/AdvReac Type Severity Reaction Status Date / Time No Known Allergies Allergy Verified 02/12/21 20:33 Home Meds: Home Meds Pnv No.95/Ferrous Fum/Folic AC [ Caplet] 1 tab PO DAILY 01/26/19 [History] valACYclovir [Valtrex] 1 tab PO DAILY 02/12/21 [History] Past Medical History Gastrointestinal History: Reports: GERD Other Gastrointestinal History: reflux Genitourinary History: Reports: UTI, Recurrent BID ANALYST History: Reports: , Other (See Below) Other BID ANALYST History: ovarian cyst. hymenectomy. currently 36 4/7 weeks Musculoskeletal History: Reports: Fracture Other Musculoskeletal History: left arm. fx R ankle Neurological History: Reports: Concussion Psychiatric History: Reports: ADD, Anxiety, Depression, Suicide Attempt, Suicidal Ideation Other Psychiatric History: had a suicidal attempt with pills - Infectious Disease History Infectious Disease History: Reports: Chicken Pox, Novel Coronavirus - Past Surgical History GI Surgical History: Reports: Appendectomy Female Surgical History: Reports: Section, Other (See Below) Other Female Surgeries/Procedures: hymenectomy Social & Family History - Family History Family Medical History: No Pertinent Family History - Tobacco Use Tobacco Use Status *Q: Never Tobacco User - Caffeine Use Caffeine Use: Reports: None - Recreational Drug Use Recreational Drug Use: No ED ROS GENERAL - Review of Systems Review Of Systems: See Below Constitutional: Denies: Fever, Chills HEENT: Reports: No Symptoms Respiratory: Reports: Pleuritic Chest Pain. Denies: Shortness of Breath Cardiovascular: Reports: Chest Pain (See HPI). Denies: Palpitations GI/Abdominal: Reports: No Symptoms Skin: Reports: No Symptoms Neurological: Reports: No Symptoms ED EXAM, GENERAL - Physical Exam Exam: See Below Exam Limited By: No Limitations General Appearance: Alert, No Apparent Distress, Other (Appears very comfortable at this time) Head: Atraumatic Respiratory/Chest: No Respiratory Distress, Lungs Clear, Other (Patient winces and reacts with tenderness with palpation of the costochondral areas of both sides of the chest anteriorly) Cardiovascular: Regular Rate, Rhythm. No: Tachycardia Extremities: Normal Inspection. No: Pedal Edema Neurological: Alert, Oriented Psychiatric: Normal Affect, Normal Mood Course - Vital Signs Last Recorded V/S: Last Vital Signs Temp 97.1 F 02/12/21 20:34 Pulse 77 02/12/21 20:34 Resp 16 02/12/21 20:34 BP 117/68 02/12/21 20:34 Pulse Ox 97 02/12/21 20:34 - Re-Assessments/Exams Free Text/Narrative Re-Assessment/Exam: 02/12/21 21:07 O2 saturations are normal, pulse is 77, symptoms are very typical of an inter costal muscle irritation or spasm rather than PE or other more serious cause. Patient was reassured. Departure - Departure Time of Disposition: 21:14 Disposition: Home, Self-Care 01 Clinical Impression: Acute chest wall pain - Discharge Information Instructions: Nonspecific Chest Pain, Adult, [id number] Referrals: Korin Fermin MD [Primary Care Provider] - Forms: ED Department Discharge Care Plan Goals: Tylenol on a regular basis may be helpful as well as a heating pad. Increase activity as tolerated, and return anytime if symptoms become more persistent, you develop fever, increased edema or other concerns. Sepsis Event Note (ED) - Evaluation Sepsis Screening Result: No Definite Risk - Focused Exam Vital Signs: Vital Signs Temp Pulse Resp BP Pulse Ox 02/12/21 20:34 97.1 F 77 16 117/68 97
[2021-02-12 22:01] VITALS: BP 117/68; PULSE 77
== END 2021-02-12 21:15 | disposition home or self-care (01) ==
LOC: JP.ED 20:28
DX: O99.891 Other specified diseases and conditions complicating pregnancy (principal); R07.89 Other chest pain; Z3A.36 36 weeks gestation of pregnancy; Z86.16 Personal history of COVID-19
CPT/HCPCS: 99284

== ENCOUNTER 2021-11-13 17:35 | Emergency (ER) | payer MEDICAID ==
[2021-11-13 19:20] VITALS: BP 153/93; PULSE 87
[2021-11-13] MEDS ORDERED: Ibuprofen 800 MG Tab PO ONE (21:22)
[2021-11-13] MEDS ORDERED: Acetaminophen 500 MG Tab PO ONE (21:22)
[2021-11-13 21:52] LABS: ESTIMATED GFR 124 mL/min (>60)
== END 2021-11-13 22:34 | disposition home or self-care (01) ==
LOC: JP.ED 17:35
DX: O99.891 Other specified diseases and conditions complicating pregnancy (principal); R10.2 Pelvic and perineal pain; O99.331 Smoking (tobacco) complicating pregnancy, first trimester; F17.210 Nicotine dependence, cigarettes, uncomplicated; Z3A.01 Less than 8 weeks gestation of pregnancy
CPT/HCPCS: 36415; 80053; 81025; 84702; 85025; 99284; A9270

== ENCOUNTER 2021-12-25 13:57 | Emergency (ER) | payer MEDICAID ==
[2021-12-25 14:11] VITALS: BP 132/60; PULSE 66
[2021-12-25] MEDS: Sodium Chloride 0.9% 10 ML Syringe FLUSH PRN (14:50)
[2021-12-25] MEDS: Sodium Chloride 0.9% 1,000 ML IV SCH (14:53)
[2021-12-25] MEDS: Ondansetron 4 MG/2 ML SDV IVPUSH ONE (14:53)
== END 2021-12-25 17:11 | disposition home or self-care (01) ==
LOC: JP.ED 13:57
DX: O20.9 Hemorrhage in early pregnancy, unspecified (principal); Z3A.01 Less than 8 weeks gestation of pregnancy
CPT/HCPCS: 36415; 76817; 81001; 84702; 84703; 85025; 96361; 96374; 99284; 99284-25; J2405; J3490; J7030

== ENCOUNTER 2022-09-22 06:10 | Emergency (ER) | payer MEDICAID ==
[2022-09-22 06:27] VITALS: BP 123/59; PULSE 70
[2022-09-22] MEDS ORDERED: Sodium Chloride 0.9% 1,000 ML IV SCH (06:30)
[2022-09-22] MEDS ORDERED: Sodium Chloride 0.9% 10 ML Syringe FLUSH PRN (06:30)
[2022-09-22] MEDS ORDERED: Ondansetron 4 MG/2 ML SDV IVPUSH ONE (06:30)
[2022-09-22 06:43] LABS: BASOPHILS ABSOLUTE AUTO 0.01 K/uL (0.00-0.10); BASOPHILS PERCENT AUTO 0.1 % (0.1-1.3); HEMATOCRIT 37.9 % (34.3-46.0); HEMOGLOBIN 12.7 g/dL (11.2-15.5); IMMATURE GRAN ABSOLUTE AUTO 0.03 K/uL (0.00-0.23); IMMATURE GRAN PERCENT AUTO 0.3 % (0.0-0.7); LYMPHOCYTES ABSOLUTE AUTO 1.13 K/uL (0.8-3.3); LYMPHOCYTES PERCENT AUTO 11.4 % (11.4-47.7); MEAN CORPUSCULAR HEMOGLOBIN 29.1 pg (31.6-35.5); MEAN CORPUSCULAR HGB CONC 33.5 g/dL (31.6-35.5); MEAN CORPUSCULAR VOLUME 86.9 fL (81.4-99.0); MONOCYTES ABSOLUTE AUTO 0.39 K/uL (0.20-0.90); MONOCYTES PERCENT AUTO 3.9 % (3.3-12.6); NEUTROPHILS ABSOLUTE AUTO 8.37 K/uL (1.0-7.6); NEUTROPHILS PERCENT AUTO 84.3 % (40.0-78.1); PLATELET COUNT,PLT 279 K/uL (130-375); RED BLOOD CELL COUNT 4.36 M/uL (3.77-5.24); WHITE BLOOD CELL COUNT,WBC 9.9 K/uL (3.2-11.0)
[2022-09-22 06:58] LABS: ANION GAP 12.8 mmol/L (5.0-14.0); CALCIUM 8.7 mg/dL (8.5-10.1); CREATININE 0.6 mg/dL (0.6-1.0); EST CRCL DRUG DOSING (CG) 113.36 mL/min; POTASSIUM,K 3.8 mmol/L (3.6-5.2)
== END 2022-09-22 08:49 | disposition home or self-care (01) ==
LOC: JP.ED 06:10
DX: O21.1 Hyperemesis gravidarum with metabolic disturbance (principal); Z3A.01 Less than 8 weeks gestation of pregnancy
CPT/HCPCS: 36415; 80048; 85025; 96361; 96374; 99284; J2405; J3490; J7030

== ENCOUNTER 2022-10-21 08:16 | Emergency (ER) | payer MEDICAID ==
[2022-10-21 08:27] VITALS: BP 111/67; PULSE 63
[2022-10-21] MEDS ORDERED: Ondansetron 4 MG/2 ML SDV IVPUSH ONE (08:38)
[2022-10-21] MEDS ORDERED: Sodium Chloride 0.9% 1,000 ML IV SCH ×2 (08:45)
[2022-10-21 08:50] LABS: BASOPHILS PERCENT AUTO 0.1 % (0.1-1.3); HEMATOCRIT 37.5 % (34.3-46.0); HEMOGLOBIN 12.8 g/dL (11.2-15.5); IMMATURE GRAN ABSOLUTE AUTO 0.03 K/uL (0.00-0.23); IMMATURE GRAN PERCENT AUTO 0.4 % (0.0-0.7); LYMPHOCYTES PERCENT AUTO 19.2 % (11.4-47.7); MEAN CORPUSCULAR HEMOGLOBIN 29.6 pg (31.6-35.5); MEAN CORPUSCULAR HGB CONC 34.1 g/dL (31.6-35.5); MEAN CORPUSCULAR VOLUME 86.8 fL (81.4-99.0); MONOCYTES ABSOLUTE AUTO 0.34 K/uL (0.20-0.90); MONOCYTES PERCENT AUTO 4.1 % (3.3-12.6); NEUTROPHILS ABSOLUTE AUTO 6.35 K/uL (1.0-7.6); NEUTROPHILS PERCENT AUTO 76.2 % (40.0-78.1); PLATELET COUNT,PLT 243 K/uL (130-375); RED BLOOD CELL COUNT 4.32 M/uL (3.77-5.24); WHITE BLOOD CELL COUNT,WBC 8.3 K/uL (3.2-11.0)
[2022-10-21 08:51] LABS: BASOPHILS ABSOLUTE AUTO 0.01 K/uL (0.00-0.10)
[2022-10-21 09:10] LABS: A/G RATIO 0.9 (1.2-2.2); ALANINE AMINOTRANSFERASE,ALT 10 U/L (12-78); ALBUMIN 3.3 g/dL (3.4-5.0); ALKALINE PHOSPHATASE 38 U/L (46-116); ASPARTATE AMNIOTRANSFERASE,AST 18 U/L (15-37); BILIRUBIN TOTAL 0.4 mg/dL (0.2-1.0); BLOOD UREA NITROGEN,BUN 8 mg/dL (7-18); CALCIUM 8.7 mg/dL (8.5-10.1); CARBON DIOXIDE,CO2 23 mmol/L (21-32); CHLORIDE,CL 102 mmol/L (100-108); CREATININE 0.6 mg/dL (0.6-1.0); EST CRCL DRUG DOSING (CG) 113.36 mL/min; ESTIMATED GFR 128 mL/min (>60); GLUCOSE RANDOM 86 mg/dL (74-106); SODIUM,NA 136 mmol/L (140-148)
[2022-10-21 10:21] LABS: APPEARANCE,URINE CLEAR (CLEAR); BILIRUBIN,URINE NEGATIVE (NEGATIVE); COLOR,URINE YELLOW (YELLOW); GLUCOSE,URINE NEGATIVE (NEGATIVE); KETONES,URINE 80 mg/dL (NEGATIVE); LEUKOCYTE ESTERASE,URINE NEGATIVE (NEGATIVE); NITRITE,URINE NEGATIVE (NEGATIVE); OCCULT BLOOD,URINE TRACE-INTACT (NEGATIVE); PH,URINE 6.5 (5.0-8.0); PROTEIN,URINE NEGATIVE (NEGATIVE); UROBILINOGEN,URINE 0.2 EU/dL (0.2-1.0)
[2022-10-21 10:39] LABS: RBC,URINE 0-5 (0-5); WBC,URINE 0-5 (0-5)
[2022-10-21 10:40] LABS: AMORPHOUS SEDIMENT,URINE NOT SEEN; BACTERIA,URINE RARE; EPITHELIAL CELLS,URINE FEW; MUCUS,URINE FEW
== END 2022-10-21 10:57 | disposition home or self-care (01) ==
LOC: JP.ED 08:16
DX: O99.891 Other specified diseases and conditions complicating pregnancy (principal); E86.0 Dehydration; Z3A.11 11 weeks gestation of pregnancy
CPT/HCPCS: 36415; 80053; 81001; 85025; 96361; 96374; 99284; J2405; J7030

== ENCOUNTER 2023-01-01 15:07 | Emergency (ER) | payer OTHER, MEDICAID ==
[2023-01-01 16:20] VITALS: BP 148/81; PULSE 87
== END 2023-01-01 16:40 | disposition home or self-care (01) ==
LOC: JP.ED 15:07 → EEVIPCON 15:07 → JP.ED 16:33
DX: M54.50 Low back pain, unspecified (principal)
CPT/HCPCS: 99283